=== PATIENT | male | born 1985 | race Native Hawaiian/Other Pacific Islander ===

== ENCOUNTER 2017-08-28 13:01 | Emergency (ER) | payer OTHER ==
[2017-08-28 14:00] LABS: Basophils % (A) 0 %; Eosinophils # (A) 0.1 k/uL (0-0.7); Eosinophils % (A) 1 %; HCT 46.1 % (39.0-53.0); HGB 16.3 gm/dL (13.0-17.5); Lymphocytes # (A) 1.1 k/uL (1.0-4.8); Lymphocytes % (A) 10 %; MCH 31.4 pg (25.0-35.0); MCHC 35.4 g/dL (31.0-37.0); MCV 88.7 fL (80.0-100.0); Mean Platelet Volume 7.8; Monocytes # (A) 0.5 k/uL (0-1.0); Monocytes % (A) 5 %; Neutrophils # (A) 9.2 k/uL (1.3-7.7); Neutrophils % (A) 84 %; Platelet Count 209 k/uL (150-450); RDW 12.6 % (11.5-15.5)
[2017-08-28 14:09] LABS: ALT 27 U/L (21-72); AST 16 U/L (17-59); Albumin 4.9 g/dL (3.5-5.0); Alkaline Phosphatase 80 U/L (38-126); Amylase 94 U/L (30-110); Anion Gap 12 mmol/L; Blood Urea Nitrogen 9 mg/dL (9-20); Calcium 10.2 mg/dL (8.4-10.2); Carbon Dioxide 27 mmol/L (22-30); Chloride 102 mmol/L (98-107); Glucose 101 mg/dL (74-99); Lipase 102 U/L (23-300); Potassium 4.3 mmol/L (3.5-5.1); Sodium 141 mmol/L (137-145); Total Bilirubin 0.4 mg/dL (0.2-1.3); Total Protein 7.9 g/dL (6.3-8.2)
[2017-08-28] MEDS ORDERED: ONDANSETRON 4 MG/2 ML VIAL IVP STA (14:27)
[2017-08-28] MEDS ORDERED: SODIUM CHLORIDE 0.9% 1,000 ML IV ONE ×2 (14:27→15:25)
[2017-08-28] MEDS ORDERED: RX INFO: IV CONTRAST WAS GIVEN 1 EACH MISC MISCELLANE PRN (14:27)
[2017-08-28] MEDS ORDERED: diphenhydrAMINE 50 MG/ML 1 ML VIAL IVP STA (14:30)
[2017-08-28] MEDS ORDERED: KETOROLAC 30 MG/ML 1 ML VIAL IVP STA (14:35)
--- NOTE | 2017-08-28 14:35 | ED ---
Nausea/Vomiting/Diarrhea HPI - General Chief complaint: Nausea/Vomiting/Diarrhea Stated complaint: withdrawals Time Seen by Provider: 08/28/17 14:26 Source: patient, RN notes reviewed Mode of arrival: ambulatory Limitations: no limitations - History of Present Illness Initial comments: 32-year-old male presents emergency Department chief complaint nausea vomiting diarrhea. Patient states symptoms started one week ago. Patient is to discharge from [facility]. Patient states he cannot tolerate symptoms at this time. Patient states he cannot keep any fluids down is concerned about dehydration. Patient states he sometimes gets abdominal pain but primarily nausea and vomiting. Patient does admit to a fever. Denies headache or dizziness. Denies any chest pain shortness breath. Patient states she is on methadone for a year and a half. Patient states she had no prior abdominal surgeries. - Related Data Previous Rx's Medication Instructions Recorded Ondansetron Odt [Zofran Odt] 4 mg PO Q8HR PRN #15 tab 08/28/17 Allergies Allergy/AdvReac Type Severity Reaction Status Date / Time No Known Allergies Allergy Verified 08/28/17 14:45 Review of Systems ROS Statement: Those systems with pertinent positive or pertinent negative responses have been documented in the HPI. ROS Other: All systems not noted in ROS Statement are negative. Past Medical History Past Medical History: No Reported History History of Any Multi-Drug Resistant Organisms: MRSA Date of last positivie culture/infection: 2010 MDRO Source:: left buttocks Past Surgical History: Adenoidectomy, Tonsillectomy Past Psychological History: Anxiety, Depression Smoking Status: Former smoker Past Alcohol Use History: None Reported Past Drug Use History: Heroin, Marijuana General Exam Limitations: no limitations General appearance: alert, in no apparent distress Head exam: Present: atraumatic, normocephalic, normal inspection Respiratory exam: Present: normal lung sounds bilaterally. Absent: respiratory distress, wheezes, rales, rhonchi, stridor Cardiovascular Exam: Present: regular rate, normal rhythm, normal heart sounds. Absent: systolic murmur, diastolic murmur, rubs, gallop, clicks GI/Abdominal exam: Present: soft, tenderness (Mild diffuse), normal bowel sounds. Absent: distended, guarding, rebound, rigid Skin exam: Present: warm, dry, intact, normal color. Absent: rash Course Vital Signs 03/25/18 13:23 Temperature 100.1 F H Pulse Rate 59 L Respiratory 20 Rate Blood Pressure 179/119 O2 Sat by Pulse 99 Oximetry Medical Decision Making - Medical Decision Making 32-year-old male presented from for drug withdrawal. Patient did have a fever noted no expressed. There is no evidence of acute fracture on x-ray and CT of abdomen. Patient feels better after antiemetics. Patient's drug screen positive for methadone and OxyContin marijuana. Patient stated that he was given oxycodone and methadone by other people. - Lab Data Result diagrams: 08/28/17 13:46 08/28/17 13:46 Lab Results 08/28/17 08/28/17 08/28/17 Range/Units 13:46 13:46 13:46 WBC 11.0 H (3.8-10.6) k/uL RBC 5.20 (4.30-5.90) m/uL Hgb 16.3 (13.0-17.5) gm/dL Hct 46.1 (39.0-53.0) % MCV 88.7 (80.0-100.0) fL MCH 31.4 (25.0-35.0) pg MCHC 35.4 (31.0-37.0) g/dL RDW 12.6 (11.5-15.5) % Plt Count 209 (150-450) k/uL Neutrophils % 84 % Lymphocytes % 10 % Monocytes % 5 % Eosinophils % 1 % Basophils % 0 % Neutrophils # 9.2 H (1.3-7.7) k/uL Lymphocytes # 1.1 (1.0-4.8) k/uL Monocytes # 0.5 (0-1.0) k/uL Eosinophils # 0.1 (0-0.7) k/uL Basophils # 0.0 (0-0.2) k/uL Sodium 141 (137-145) mmol/L Potassium 4.3 (3.5-5.1) mmol/L Chloride 102 (98-107) mmol/L Carbon Dioxide 27 (22-30) mmol/L Anion Gap 12 mmol/L BUN 9 (9-20) mg/dL Creatinine 0.60 L (0.66-1.25) mg/dL Est GFR (CKD-EPI)AfAm >90 (>60 ml/min/1.73 sqM) Est GFR (CKD-EPI)NonAf >90 (>60 ml/min/1.73 sqM) Glucose 101 H (74-99) mg/dL Plasma Lactic Acid Luis Daniel 1.3 (0.7-2.0) mmol/L Calcium 10.2 (8.4-10.2) mg/dL Total Bilirubin 0.4 (0.2-1.3) mg/dL AST 16 L (17-59) U/L ALT 27 (21-72) U/L Alkaline Phosphatase 80 (38-126) U/L Total Protein 7.9 (6.3-8.2) g/dL Albumin 4.9 (3.5-5.0) g/dL Amylase 94 (30-110) U/L Lipase 102 (23-300) U/L Urine Color Urine Appearance (Clear) Urine pH (5.0-8.0) Ur Specific [place] (1.001-1.035) Urine Protein (Negative) Urine Glucose (UA) (Negative) Urine Ketones (Negative) Urine Blood (Negative) Urine Nitrite (Negative) Urine Bilirubin (Negative) Urine Urobilinogen (<2.0) mg/dL Ur Leukocyte Esterase (Negative) Urine Opiates Screen (NotDetected) Ur Oxycodone Screen (NotDetected) Urine Methadone Screen (NotDetected) Ur Propoxyphene Screen (NotDetected) Ur Barbiturates Screen (NotDetected) U Tricyclic Antidepress (NotDetected) Ur Phencyclidine Scrn (NotDetected) Ur Amphetamines Screen (NotDetected) U Methamphetamines Scrn (NotDetected) U Benzodiazepines Scrn (NotDetected) Urine Cocaine Screen (NotDetected) U Marijuana (THC) Screen (NotDetected) 08/28/17 Range/Units 15:53 WBC (3.8-10.6) k/uL RBC (4.30-5.90) m/uL Hgb (13.0-17.5) gm/dL Hct (39.0-53.0) % MCV (80.0-100.0) fL MCH (25.0-35.0) pg MCHC (31.0-37.0) g/dL RDW (11.5-15.5) % Plt Count (150-450) k/uL Neutrophils % % Lymphocytes % % Monocytes % % Eosinophils % % Basophils % % Neutrophils # (1.3-7.7) k/uL Lymphocytes # (1.0-4.8) k/uL Monocytes # (0-1.0) k/uL Eosinophils # (0-0.7) k/uL Basophils # (0-0.2) k/uL Sodium (137-145) mmol/L Potassium (3.5-5.1) mmol/L Chloride (98-107) mmol/L Carbon Dioxide (22-30) mmol/L Anion Gap mmol/L BUN (9-20) mg/dL Creatinine (0.66-1.25) mg/dL Est GFR (CKD-EPI)AfAm (>60 ml/min/1.73 sqM) Est GFR (CKD-EPI)NonAf (>60 ml/min/1.73 sqM) Glucose (74-99) mg/dL Plasma Lactic Acid Luis Daniel (0.7-2.0) mmol/L Calcium (8.4-10.2) mg/dL Total Bilirubin (0.2-1.3) mg/dL AST (17-59) U/L ALT (21-72) U/L Alkaline Phosphatase (38-126) U/L Total Protein (6.3-8.2) g/dL Albumin (3.5-5.0) g/dL Amylase (30-110) U/L Lipase (23-300) U/L Urine Color Light Yellow Urine Appearance Clear (Clear) Urine pH 8.0 (5.0-8.0) Ur Specific [place] 1.031 (1.001-1.035) Urine Protein Negative (Negative) Urine Glucose (UA) Negative (Negative) Urine Ketones Negative (Negative) Urine Blood Negative (Negative) Urine Nitrite Negative (Negative) Urine Bilirubin Negative (Negative) Urine Urobilinogen <2.0 (<2.0) mg/dL Ur Leukocyte Esterase Negative (Negative) Urine Opiates Screen Not Detected (NotDetected) Ur Oxycodone Screen Detected H (NotDetected) Urine Methadone Screen Detected H (NotDetected) Ur Propoxyphene Screen Not Detected (NotDetected) Ur Barbiturates Screen Not Detected (NotDetected) U Tricyclic Antidepress Not Detected (NotDetected) Ur Phencyclidine Scrn Not Detected (NotDetected) Ur Amphetamines Screen Not Detected (NotDetected) U Methamphetamines Scrn Not Detected (NotDetected) U Benzodiazepines Scrn Not Detected (NotDetected) Urine Cocaine Screen Not Detected (NotDetected) U Marijuana (THC) Screen Detected H (NotDetected) Disposition Clinical Impression: Drug withdrawal, Opiate use Disposition: HOME SELF-CARE Condition: Stable Instructions: Opioid Withdrawal (ED) Additional Instructions: Please return to the Emergency Department if symptoms worsen or any other concerns. Prescriptions: Ondansetron Odt [Zofran Odt] 4 mg PO Q8HR PRN #15 tab PRN Reason: Nausea Referrals: Genaro Melton MD [Primary Care Provider] - 1-2 days Time of Disposition: 16:34
--- NOTE | 2017-08-28 16:04 | CT ---
EXAMINATION TYPE: CT abdomen pelvis w con DATE OF EXAM: 08/28/2017 COMPARISON: NONE HISTORY: Abdominal pain and vomiting CT DLP: 1644 mGycm Automated exposure control for dose reduction was used. TECHNIQUE: Helical acquisition of images was performed from the lung bases through the pelvis. CONTRAST: Performed without Oral Contrast and with IV Contrast, patient injected with 100 mL of Isovu e 300. FINDINGS: LUNG BASES: No significant abnormality is appreciated. LIVER/GB: No significant abnormality is appreciated. PANCREAS: No significant abnormality is seen. SPLEEN: No significant abnormality is seen. ADRENALS: No significant abnormality is seen. KIDNEYS: No significant abnormality is seen. FREE AIR: No free air is visualized. RETROPERITONEAL ADENOPATHY: None visualized REPRODUCTIVE ORGANS: No significant abnormality is seen URINARY BLADDER: No significant abnormality is seen. PELVIC ADENOPATHY: None visualized. OSSEOUS STRUCTURES: No significant abnormality is seen. BOWEL: No significant abnormality is seen. The appendix is well-seen and has normal appearance, it e xtends over much of the anterior margin of the right psoas muscle. OTHER: Vasculature is unremarkable. IMPRESSION: NO ACUTE PROCESS, CT WITH CONTRAST.
[2017-08-28 16:06] LABS: Appearance,Urine Clear (Clear); Bilirubin,Urine Negative (Negative); Blood,Urine Negative (Negative); Color,Urine Light Yellow; Glucose,Urine (UA) Negative (Negative); Ketones,Urine Negative (Negative); Leukocyte Esterase,Urine Negative (Negative); Nitrite,Urine Negative (Negative); Protein,Urine Negative (Negative); Specific Gravity,Urine 1.031 (1.001-1.035); Urobilinogen,Urine <2.0 mg/dL (<2.0)
[2017-08-28 16:25] LABS: Amphetamine Screen,Urine Not Detected (NotDetected); Barbiturate Screen,Urine Not Detected (NotDetected); Benzodiazepines Screen,Urine Not Detected (NotDetected); Cocaine Screen,Urine Not Detected (NotDetected); Methadone Screen, Urine Detected (NotDetected); Opiate Screen,Urine Not Detected (NotDetected); Oxycodone Screen, Urine Detected (NotDetected); Phencyclidine Screen,Urine Not Detected (NotDetected); Tricyclic Antidepressant,Urine Not Detected (NotDetected); Urn Cannabinoid Scrn Detected (NotDetected)
[2017-08-28 16:33] VITALS: BP 163/82; PULSE 64; RESP 16; TEMP 98.9
== END 2017-08-28 16:42 | disposition home or self-care (01) ==
LOC: EC 13:01
DX: F11.23 Opioid dependence with withdrawal (principal); R19.7 Diarrhea, unspecified; R10.9 Unspecified abdominal pain; R50.9 Fever, unspecified; Z86.14 Personal history of Methicillin resistant Staphylococcus aureus infection; Z87.891 Personal history of nicotine dependence
CPT/HCPCS: 36415; 80053; 82150; 83605; 83690; 85025; 81003; 87040; 80306; 74177; 99284; 96374; 96375 ×2; 96361 ×2; J1200; J2405; J1885; Q9967

== ENCOUNTER 2018-08-08 10:46 | Emergency (ER) | payer OTHER ==
[2018-08-08 11:18] VITALS: BP 138/74; PULSE 83; RESP 16; TEMP 98.3
[2018-08-08] MEDS ORDERED: LIDOCAINE 1% INJ 10MG/ML (20 ML MDV) SQ STA (11:42)
--- NOTE | 2018-08-08 11:43 | ED ---
General Adult HPI - General Chief complaint: Skin/Abscess/Foreign Body Stated complaint: Abcess Time Seen by Provider: 08/08/18 11:29 Source: patient, RN notes reviewed Mode of arrival: ambulatory Limitations: no limitations - History of Present Illness Initial comments: Patient 33-year-old male significant past medical history for IV drug abuse, presenting to the emergency room today with an abscess to the left forearm. Patient does admit that he noticed a bump setting 2 days ago. He states he was able to some drainage at home. He states has become more tender and painful. He states he wanted to try to get antibiotics before it got worse. Patient does admit that he had to be hospitalized in the past for something like this. Patient denies any other complaints or symptoms. - Related Data Previous Rx's Medication Instructions Recorded Sulfamethox-Tmp 800-160Mg [Bactrim 1 tab PO Q12HR #28 tab 08/08/18 DS 800-160 mg] Allergies Allergy/AdvReac Type Severity Reaction Status Date / Time No Known Allergies Allergy Verified 08/08/18 12:01 Review of Systems ROS Statement: Those systems with pertinent positive or pertinent negative responses have been documented in the HPI. ROS Other: All systems not noted in ROS Statement are negative. Past Medical History Past Medical History: No Reported History History of Any Multi-Drug Resistant Organisms: MRSA Date of last positivie culture/infection: 2012 MDRO Source:: left axilla Past Surgical History: Adenoidectomy, Tonsillectomy Past Psychological History: Anxiety, Depression Smoking Status: Current every day smoker Past Alcohol Use History: None Reported Past Drug Use History: Heroin, Marijuana General Exam - General Exam Comments Initial Comments: General: The patient is awake and alert, in no distress, and does not appear acutely ill. Eye: There is normal conjunctiva bilaterally. No signs of icterus. Ears, nose, mouth and throat: There are moist mucous membranes and no oral lesions. Neck: The neck is supple, there is no tenderness or JVD. Musculoskeletal: Normal ROM, no tenderness. Strength 5/5. Sensation intact. Pulses equal bilaterally 2+. Neurological: A&O x 3. CN II-XII intact, There are no obvious motor or sensory deficits. Coordination appears grossly intact. Speech is normal. Skin: Abscess to the left AC joint area. This firm on palpation. Measures approximately 2-3 cm across by 1 cm. No lymphangitic streaking. Tract nugent to the left and right AC areas. Psychiatric: Cooperative, appropriate mood & affect, normal judgment. Limitations: no limitations Course Vital Signs 08/08/18 11:14 Temperature 98.3 F Pulse Rate 83 Respiratory 16 Rate Blood Pressure 138/74 O2 Sat by Pulse 99 Oximetry Procedures - Procedures Initial comment: She does have abscess to the left AC joint. Procedure: Incision and drainage The skin overlying the abscess was prepped with Betadine, and anesthetized with 1% lidocaine without epinephrine. A #11 scalpel was then used to incise the abscess. Moderate purulent material was then extracted from the lesion. Wound culture obtained. Gauze dressing placed on top, The patient tolerated the procedure well. Medical Decision Making - Medical Decision Making Patient abscess drained here in the emergency room. Moderate amount of drainage was removed. Wound culture obtained. Patient will be started on antibiotics. He is advised close follow-up and return to emergency room if any symptoms increase worsen. Disposition Clinical Impression: Abscess Disposition: HOME SELF-CARE Condition: Good Instructions (If sedation given, give patient instructions): Abscess (ED) Additional Instructions: Please use medication as discussed. Please follow-up with family doctor in the next 2 days of symptoms have not improved. Please return to emergency room if the symptoms increase or worsen or for any other concerns. Prescriptions: Sulfamethox-Tmp 800-160Mg [Bactrim DS 800-160 mg] 1 tab PO Q12HR #28 tab Is patient prescribed a controlled substance at d/c from ED?: No Referrals: Genaro Melton MD [Primary Care Provider] - 1-2 days Time of Disposition: 12:02
== END 2018-08-08 12:13 | disposition home or self-care (01) ==
LOC: EC 10:46
DX: L02.414 Cutaneous abscess of left upper limb (principal); F17.200 Nicotine dependence, unspecified, uncomplicated; Z86.14 Personal history of Methicillin resistant Staphylococcus aureus infection
CPT/HCPCS: 87070; 87205; 99283; 10060; J2001

== ENCOUNTER 2018-08-11 01:10 | Inpatient (IN) | payer OTHER ==
[2018-08-11] MEDS ORDERED: KETOROLAC 30 MG/ML 1 ML VIAL IVP STA (01:35)
[2018-08-11] MEDS ORDERED: ACETAMINOPHEN TAB 500 MG TAB PO STA (01:35)
[2018-08-11] MEDS ORDERED: VANCOMYCIN IV PER PHARMACY 1 EACH MISC MISCELLANE PRN (01:35)
[2018-08-11] MEDS ORDERED: RX INFO: IV CONTRAST WAS GIVEN 1 EACH MISC MISCELLANE PRN (01:45)
[2018-08-11] MEDS ORDERED: PIPERACILLIN-TAZOBACTAM 3.375 GM in SODIUM CHLORIDE 0.9% 100 ML IVPB STA (01:45)
[2018-08-11] MEDS ORDERED: VANCOMYCIN 1,750 MG in SODIUM CHLORIDE 0.9% 500 ML 500 ML IVPB ONE (02:00)
--- NOTE | 2018-08-11 02:15 | ED ---
Skin/Abscess/FB HPI - General Chief complaint: Skin/Abscess/Foreign Body Stated complaint: abscess Time Seen by Provider: 08/11/18 01:30 Source: patient Mode of arrival: ambulatory Limitations: no limitations - History of Present Illness Initial comments: 33-year-old male patient presents to the emergency department today for evaluation of worsening abscess to the left antecubital region. Patient was seen and evaluated for this on 08/08/2018 and underwent incision and drainage. He was started on Bactrim. States he has been taking this medication as directed since receiving the prescription. States that over the last 12 hours the area has exhibited worsening swelling, redness, and pain. States that he has had some sweats but denies any known fever or chills. Patient does admit to a history of IV drug use, states that he last used a week or 2 ago. States he is currently taking Suboxone. Patient denies any recent rash, shortness breath, chest pain, abdominal pain, nausea, vomiting, diarrhea, constipation, back pain, numbness, tingling, dizziness, weakness, hematuria, dysuria, urinary urgency, urinary frequency, headache, visual changes, or any other complaints. - Related Data Previous Rx's Medication Instructions Recorded Sulfamethox-Tmp 800-160Mg [Bactrim 1 tab PO Q12HR #28 tab 08/08/18 DS 800-160 mg] Allergies Allergy/AdvReac Type Severity Reaction Status Date / Time No Known Allergies Allergy Verified 08/11/18 01:19 Review of Systems ROS Statement: Those systems with pertinent positive or pertinent negative responses have been documented in the HPI. ROS Other: All systems not noted in ROS Statement are negative. Past Medical History Past Medical History: No Reported History History of Any Multi-Drug Resistant Organisms: MRSA Date of last positivie culture/infection: 08/08/18 MDRO Source:: ARM Past Surgical History: Adenoidectomy, Tonsillectomy Past Psychological History: Anxiety, Depression Smoking Status: Current some day smoker Past Alcohol Use History: None Reported Past Drug Use History: Heroin, Marijuana General Exam Limitations: no limitations General appearance: alert, in no apparent distress, other (Physical well- developed, well-nourished adult male patient in no acute distress. Vital signs upon presentation are temperature 99.3F, pulse 120, respirations 18, blood pressure 136/77, pulse ox 95% on room air.) Respiratory exam: Present: normal lung sounds bilaterally. Absent: respiratory distress, wheezes, rales, rhonchi, stridor Cardiovascular Exam: Present: regular rate, normal rhythm, normal heart sounds. Absent: systolic murmur, diastolic murmur, rubs, gallop, clicks Extremities exam: Present: full ROM, tenderness (Tenderness over the left antecubital region), normal capillary refill, other (Patient has swelling, erythema, and induration noted over the left antecubital region extending up to the mid upper arm and mid forearm. Skin to the hand is pink, warm, dry. Cap refills less than 3 seconds. Radial pulses 2+ and equal bilaterally). Absent: normal inspection, pedal edema, joint swelling, calf tenderness Neurological exam: Present: alert, oriented X3, CN II-XII intact Psychiatric exam: Present: normal affect, normal mood Skin exam: Present: warm, dry, intact, normal color. Absent: rash Course Vital Signs 08/11/18 08/11/18 01:13 02:29 Temperature 99.3 F Pulse Rate 120 H 93 Respiratory 18 16 Rate Blood Pressure 136/77 141/76 O2 Sat by Pulse 95 100 Oximetry Procedures - Incision & Drainage Consent Obtained: verbal consent Indication: Abscess Site: upper extremity (Left antecubital region) Size (cm): 3 Anesthetic Used: lidocaine 1% Amount (mLs): 5 I&D Cleaning Method: Betadine Needle Aspiration Performed?: Yes Irrigation Performed?: No I&D Drainage Obtained: Pus, Blood Culture Obtained?: No Patient Tolerated Procedure: well, no complications Medical Decision Making - Medical Decision Making Pleasant 33-year-old male patient with known history of IV drug abuse presents to the emergency department today for evaluation of worsening infection to the left arm. Patient was seen and evaluated for an abscess to the left antecubital fossa on 08/08/2018. Patient reported that over the last 12 hours the area has had increasing redness, swelling, and pain. Labs reviewed and did reveal elevated white blood cell count 11.7, hemoglobin is decreased 12.0. Sodium is 135. Blood sugars 149. Total bilirubin 2.1, AST 188, ALT 673. CT of the left arm with contrast was obtained and did reveal a 3.2 cm intramuscular abscess in the left antecubital region. For further evaluation of the liver we did add an acute hepatitis panel as well as PT/INR, PTT. For management of the abscess I did cleanse the area with Betadine and attempt needle aspiration, was unable to aspirate any fluid however I was able to express a large amount of purulent fluid from the area with pressure. Patient did report improvement of pain symptoms once the area was drained. Patient was started on vancomycin was given a dose of Zosyn pending CT results. There does not appear to be any evidence of necrotizing fasciitis we will discontinue the Zosyn and continue vancomycin. Patient did have a positive MRSA culture from the abscess on 08/08/2018. We will admit to the hospital for continued IV antibiotics and IV fluids. Patient was informed of all results and plan, he is agreeable. - Lab Data Result diagrams: 08/11/18 01:50 08/11/18 01:50 Lab Results 08/11/18 08/11/18 08/11/18 Range/Units 01:50 01:50 01:50 WBC 11.7 H (3.8-10.6) k/uL RBC 4.00 L (4.30-5.90) m/uL Hgb 12.0 L (13.0-17.5) gm/dL Hct 37.1 L (39.0-53.0) % MCV 92.7 (80.0-100.0) fL MCH 30.1 (25.0-35.0) pg MCHC 32.5 (31.0-37.0) g/dL RDW 14.3 (11.5-15.5) % Plt Count 305 (150-450) k/uL Neutrophils % 79 % Lymphocytes % 12 % Monocytes % 7 % Eosinophils % 1 % Basophils % 0 % Neutrophils # 9.2 H (1.3-7.7) k/uL Lymphocytes # 1.4 (1.0-4.8) k/uL Monocytes # 0.9 (0-1.0) k/uL Eosinophils # 0.1 (0-0.7) k/uL Basophils # 0.1 (0-0.2) k/uL Sodium 135 L (137-145) mmol/L Potassium 4.2 (3.5-5.1) mmol/L Chloride 104 (98-107) mmol/L Carbon Dioxide 23 (22-30) mmol/L Anion Gap 8 mmol/L BUN 16 (9-20) mg/dL Creatinine 0.67 (0.66-1.25) mg/dL Est GFR (CKD-EPI)AfAm >90 (>60 ml/min/1.73 sqM) Est GFR (CKD-EPI)NonAf >90 (>60 ml/min/1.73 sqM) Glucose 149 H (74-99) mg/dL Plasma Lactic Acid Luis Daniel 1.5 (0.7-2.0) mmol/L Calcium 8.6 (8.4-10.2) mg/dL Total Bilirubin 2.1 H (0.2-1.3) mg/dL AST 188 H (17-59) U/L ALT 673 H (21-72) U/L Alkaline Phosphatase 113 (38-126) U/L Total Protein 6.4 (6.3-8.2) g/dL Albumin 3.6 (3.5-5.0) g/dL - Radiology Data Radiology results: report reviewed, image reviewed CT of the left arm with contrast was obtained. Report is reviewed in its entirety. Impression by Dr. Bruce shows intramuscular antecubital fossa 3.2 cm fluid collection likely represents an abscess. There is diffuse soft tissue swelling likely representing cellulitis. Disposition Clinical Impression: Abscess of left arm, Cellulitis of left arm Disposition: ADMITTED IP TO THIS [facility] Condition: Serious Referrals: Genaro Melton MD [Primary Care Provider] - 1-2 days Decision to Admit Reason: Admit from [facility] Decision Date: 08/11/18 Decision Time: 04:09
[2018-08-11] MEDS: SODIUM CHLORIDE 0.9% 500 ML 500 ML IV SCH ×3 (02:24→05:33)
[2018-08-11 02:37] LABS: ALT 673 U/L (21-72); AST 188 U/L (17-59); Albumin 3.6 g/dL (3.5-5.0); Alkaline Phosphatase 113 U/L (38-126); Anion Gap 8 mmol/L; Blood Urea Nitrogen 16 mg/dL (9-20); Calcium 8.6 mg/dL (8.4-10.2); Carbon Dioxide 23 mmol/L (22-30); Chloride 104 mmol/L (98-107); Glucose 149 mg/dL (74-99); Potassium 4.2 mmol/L (3.5-5.1); Sodium 135 mmol/L (137-145); Total Bilirubin 2.1 mg/dL (0.2-1.3); Total Protein 6.4 g/dL (6.3-8.2)
[2018-08-11 02:45] LABS: Basophils # (A) 0.1 k/uL (0-0.2); Basophils % (A) 0 %; Eosinophils # (A) 0.1 k/uL (0-0.7); Eosinophils % (A) 1 %; HCT 37.1 % (39.0-53.0); Lymphocytes # (A) 1.4 k/uL (1.0-4.8); Lymphocytes % (A) 12 %; MCH 30.1 pg (25.0-35.0); MCHC 32.5 g/dL (31.0-37.0); MCV 92.7 fL (80.0-100.0); Mean Platelet Volume 7.9; Monocytes # (A) 0.9 k/uL (0-1.0); Monocytes % (A) 7 %; Neutrophils # (A) 9.2 k/uL (1.3-7.7); Neutrophils % (A) 79 %; Platelet Count 305 k/uL (150-450); RDW 14.3 % (11.5-15.5); WBC 11.7 k/uL (3.8-10.6)
--- NOTE | 2018-08-11 03:24 | CT ---
EXAM: CT Left Upper Extremity With Intravenous Contrast CLINICAL HISTORY: ITS.REASON CT Reason: Pain TECHNIQUE: Axial computed tomography images of the left upper extremity with intravenous contrast. CTDI is 36 mGy and DLP is 1700 mGy-cm. This CT exam was performed using one or more of the following dose reduction techniques: automated exposure control, adjustment of the mA and/or kV according to patient size, and/or use of iterative reconstruction technique. COMPARISON: No relevant prior studies available. FINDINGS: Bones/joints: Unremarkable. No acute fracture. No dislocation. Soft tissues: Diffuse soft tissue swelling and skin thickening. There is a 3.2 x 2.2 cm intramuscular fluid collection in the antecubital fossa. IMPRESSION: Intramuscular antecubital fossa 3.2 cm fluid collection likely represents an abscess. There is diffuse soft tissue swelling likely representing cellulitis.
[2018-08-11] MEDS ORDERED: IBUPROFEN 400 MG TAB PO PRN (04:03)
[2018-08-11] MEDS ORDERED: KETOROLAC 30 MG/ML 1 ML VIAL IVP PRN (04:03)
[2018-08-11] MEDS ORDERED: NALOXONE 0.4 MG/ML 1 ML VIAL IV PRN (04:03)
[2018-08-11] MEDS ORDERED: LIDOCAINE 1% INJ 10MG/ML (20 ML MDV) SQ ONE (04:18)
[2018-08-11 05:00] LABS: Hepatitis A AB IgM Index 0.02; Hepatitis A Antibody IgM NEGATIVE
[2018-08-11 05:24] VITALS: BMI 29.0
[2018-08-11] MEDS: SODIUM CHLORIDE 0.9% 1,000 ML IV SCH ×2 (05:56→18:13)
[2018-08-11 07:55] LABS: Partial Thromboplastin Time 26.9 sec (22.0-30.0); Prothrombin Time 10.6 sec (9.0-12.0)
[2018-08-11] MEDS: VANCOMYCIN 1,500 MG in SODIUM CHLORIDE 0.9% 250 ML IVPB SCH ×2 (11:11→19:50)
[2018-08-11] MEDS ORDERED: ONDANSETRON 4 MG/2 ML VIAL IVP PRN (13:30)
--- NOTE | 2018-08-11 13:57 | P.HPIM ---
History of Present Illness H&P Date: 08/11/18 Chief Complaint: Left forearm swelling The patient is a 33-year-old male with a past medical history of IV drug abuse, previous MRSA abscess of the axilla and gluteal area who presents to the ER via private vehicle with chief complaint of left forearm crease pain and swelling. Apparently the patient symptoms started as a bump in that area over a week ago and gradually became more swollen and erythematous and more painful. The patient presented to the ER and was seen 08/08/18 and had a reported I&D in the ER and was discharged home on Bactrim, with no improvement of his symptoms.the patient actually reports that it's gotten even more swollen and red and tender. The patient denies any subjective fevers chills or night sweats and reports to intermittent IV drug use. States he is currently taking Suboxone. Patient denies any shortness breath, chest pain, abdominal pain, nausea, vomiting, diarrhea, constipation, back pain, numbness, tingling, dizziness, weakness, hematuria, dysuria, urinary urgency, urinary frequency, headache, visual changes, or any other complaints. Review of records indicates that the patient ID cultures grew MRSA and beta hemolytic strep. In the ER the patient had a comprehensive workup and was noted to have a mild leukocytosis of 11.7 and he was started on empiric IV antibiotics with vancomycin and Zosyn after left upper extremity CT confirmed a 3.2 cm abscess in that and a cubicle fossa with surrounding cellulitis. The patient is recommended for admission to be seen by ID and orthopedics and for IV antibiotics. Review of Systems Pertinent positives per HPI all other review of systems otherwise negative Past Medical History Past Medical History: No Reported History History of Any Multi-Drug Resistant Organisms: MRSA Date of last positivie culture/infection: 08/08/18 MDRO Source:: ARM Past Surgical History: Adenoidectomy, Tonsillectomy Past Psychological History: Anxiety, Depression Smoking Status: Current some day smoker Past Alcohol Use History: None Reported Past Drug Use History: Heroin, Marijuana - Past Family History Mother History Unknown: Yes Medications and Allergies Home Medications Medication Instructions Recorded Confirmed Type Sulfamethox-Tmp 800-160Mg [Bactrim 1 tab PO Q12HR #28 tab 08/08/18 08/11/18 Rx DS 800-160 mg] Allergies Allergy/AdvReac Type Severity Reaction Status Date / Time No Known Allergies Allergy Verified 08/11/18 08:02 Physical Exam Vitals: Vital Signs Temp Pulse Pulse Resp BP BP Pulse Ox 08/11/18 08:00 16 08/11/18 06:00 97.9 F 101 H 16 134/74 100 08/11/18 04:59 98.5 F 93 16 141/78 98 08/11/18 02:29 93 16 141/76 100 08/11/18 01:13 99.3 F 120 H 18 136/77 95 Intake and Output 08/10/18 08/11/18 08/11/18 22:59 06:59 14:59 Intake Total 850 Balance 850 Intake: Intake, IV Titration 850 Amount Piperacillin-Tazobactam 3 100 .375 gm In Sodium Chloride 0.9% 100 ml @ 25 mls/hr IVPB ONCE STA Rx# :[id number] Vancomycin 1,500 mg In 250 Sodium Chloride 0.9% 250 ml @ 125 mls/hr IVPB Q8H GEORGE Rx#:[id number] Vancomycin 1,750 mg In 500 Sodium Chloride 0.9% 500 ml 500 ml @ 166.67 mls/hr IVPB ONCE ONE Rx#: [id number] Other: Voiding Method Toilet Toilet Urinal Urinal Weight 102.784 kg Constitutional: No acute distress, conversant, pleasant Eyes: Anicteric sclerae, moist conjunctiva, no lid-lag, PERRLA ENMT: NC/AT,Oropharynx clear, no erythema, exudates Neck:Supple, FROM, no masses, or JVD, No carotid bruits; No thyromegaly Lungs: Clear to auscultation, Clear to percussion, Normal respiratory effort, no accessory muscle use Cardiovascular: Heart regular in rate and rhythm, No murmurs, gallops, or rubs no peripheral edema Abdominal: Soft Nontender, nom distended, no guarding, no rebound or rigidity, Normoactive bowel sounds No hepatomegaly, No splenomegaly, No palpable mass No abdominal wall hernia noted Skin: (Tenderness over the left antecubital region), normal capillary refill, other (Patient has swelling, erythema, and induration noted over the left antecubital region extending up to the mid upper arm and mid forearm. Purulent drainage noted Extremities:No digital cyanosis No clubbing, Pedal pulses intact and symmetrical Radial pulses intact and symmetrical Normal gait and station, No calf tenderness Psychiatric: Alert and oriented to person, place and time, Appropriate affect Intact judgement Neuro: Muscles Strength 5/5 in all 4 extremities, Sensation to light touch grossly present throughout, Cranial nerves II-XII grossly intact. No focal sensory deficits Results CBC & Chem 7: 08/11/18 01:50 08/11/18 01:50 Labs: Abnormal Lab Results - Last 24 Hours (Table) 08/11/18 08/11/18 Range/Units 01:50 01:50 WBC 11.7 H (3.8-10.6) k/uL RBC 4.00 L (4.30-5.90) m/uL Hgb 12.0 L (13.0-17.5) gm/dL Hct 37.1 L (39.0-53.0) % Neutrophils # 9.2 H (1.3-7.7) k/uL Sodium 135 L (137-145) mmol/L Glucose 149 H (74-99) mg/dL Total Bilirubin 2.1 H (0.2-1.3) mg/dL AST 188 H (17-59) U/L ALT 673 H (21-72) U/L Thrombosis Risk Factor Assmnt - Choose All That Apply Any of the Below Risk Factors Present?: No Other Risk Factors: No Other congenital or acquired thrombophilia - If yes, enter type in comment: No Thrombosis Risk Factor Assessment Level: Very Low Risk Assessment and Plan (1) Sepsis Current Visit: Yes Status: Acute Code(s): A41.9 - SEPSIS, UNSPECIFIED ORGANISM SNOMED Code(s): 15030184 (2) Abscess of left arm Current Visit: Yes Status: Acute Code(s): L02.414 - CUTANEOUS ABSCESS OF LEFT UPPER LIMB SNOMED Code(s): 716201928 (3) Cellulitis of left arm Current Visit: Yes Status: Acute Code(s): L03.114 - CELLULITIS OF LEFT UPPER LIMB SNOMED Code(s): 603707826 (4) History of intravenous drug abuse Current Visit: Yes Status: Acute Code(s): Z87.898 - PERSONAL HISTORY OF OTHER SPECIFIED CONDITIONS SNOMED Code(s): 05814311466395072 Plan: The patient is admitted with sepsis secondary to a left antecubital abscess with surrounding cellulitis although afebrile he does have a mild white count of 11.7. Orthopedics has been consulted for I&D and ID consulted for antibiotic guidance, we'll plan to continue empiric IV antibiotics with vancomycin and Zosyn. Blood and urine cultures have been ordered, continue with supportive management with Tylenol and ibuprofen and Zofran. The patient is placed on heparin for DVT prophylaxis. Continue to monitor his clinical course. CODE STATUS Full code Anticipated discharge 2-3 days
[2018-08-11] MEDS: PIPERACILLIN-TAZOBACTAM 3.375 GM in SODIUM CHLORIDE 0.9% 100 ML IVPB SCH ×2 (15:29→19:11)
[2018-08-11 15:49] LABS: Hepatitis B Core IgM Reactive (Non-Reactive)
[2018-08-11 15:58] LABS: Appearance,Urine Clear (Clear); Bilirubin,Urine Negative (Negative); Blood,Urine Negative (Negative); Color,Urine Yellow; Glucose,Urine (UA) Negative (Negative); Ketones,Urine Negative (Negative); Leukocyte Esterase,Urine Negative (Negative); Nitrite,Urine Negative (Negative); Protein,Urine Negative (Negative); Specific Gravity,Urine 1.012 (1.001-1.035)
--- NOTE | 2018-08-11 20:10 | P.CNOR ---
History of Present Illness - HPI Consult date: 08/11/18 History of present illness: This is a 33-year-old male admitted to [facility] with complaint of redness and swelling to the left elbow. He has history of IV drug abuse. He last used IV drugs in that arm 2 weeks ago. Within a few days of that usage he developed swelling and redness to the antecubital area. He states that the ER has tried to drain the area with a needle and syringe twice. He has had no formal incision and drainage. He reports no fever or chills at home. He is admitted for IV antibiotics. We're consulted for orthopedic evaluation. Past Medical History Past Medical History: No Reported History History of Any Multi-Drug Resistant Organisms: MRSA Year Discovered:: 08/08/18 MDRO Source:: ARM Past Surgical History: Adenoidectomy, Tonsillectomy Past Psychological History: Anxiety, Depression Smoking Status: Current some day smoker Past Alcohol Use History: None Reported Past Drug Use History: Heroin, Marijuana - Past Family History Mother History Unknown: Yes Medications and Allergies Home Medications Medication Instructions Recorded Confirmed Type Sulfamethox-Tmp 800-160Mg [Bactrim 1 tab PO Q12HR #28 tab 08/08/18 08/11/18 Rx DS 800-160 mg] Allergies Allergy/AdvReac Type Severity Reaction Status Date / Time No Known Allergies Allergy Verified 08/11/18 08:02 Physical Examination This is a 33-year-old male in no acute distress. He is alert and oriented 3. Exam of the left upper extremities reveals erythema and swelling to the antecubital fossa. The redness extends down into the mid forearm. There is a small pinpoint area of yellow drainage from the mid antecubital region. He has fairly good elbow motion. He has full wrist motion without difficulty or pain. Neurovascular status the upper extremity is intact. Results CT of the left forearm reveals a fluid collection about the antecubital fossa. Generalized cellulitis noted as well. No acute fractures identified. No foreign bodies. - Labs Labs: Abnormal Lab Results - Last 24 Hours (Table) 08/11/18 08/11/18 08/11/18 Range/Units 01:50 01:50 01:50 WBC 11.7 H (3.8-10.6) k/uL RBC 4.00 L (4.30-5.90) m/uL Hgb 12.0 L (13.0-17.5) gm/dL Hct 37.1 L (39.0-53.0) % Neutrophils # 9.2 H (1.3-7.7) k/uL Sodium 135 L (137-145) mmol/L Glucose 149 H (74-99) mg/dL Total Bilirubin 2.1 H (0.2-1.3) mg/dL AST 188 H (17-59) U/L ALT 673 H (21-72) U/L Hep B Core IgM Ab Reactive H (Non-Reactive) H & H 08/11/18 Range/Units 01:50 Hgb 12.0 L (13.0-17.5) gm/dL Hct 37.1 L (39.0-53.0) % Coagulation 08/11/18 Range/Units 07:18 INR 1.0 (<1.2) Result Diagrams: 08/11/18 01:50 08/11/18 01:50 Assessment and Plan (1) Abscess of left arm Current Visit: Yes Status: Acute Code(s): L02.414 - CUTANEOUS ABSCESS OF LEFT UPPER LIMB SNOMED Code(s): 144738531 (2) Cellulitis of left arm Current Visit: Yes Status: Acute Code(s): L03.114 - CELLULITIS OF LEFT UPPER LIMB SNOMED Code(s): 229748298 (3) History of intravenous drug abuse Current Visit: Yes Status: Acute Code(s): Z87.898 - PERSONAL HISTORY OF OTHER SPECIFIED CONDITIONS SNOMED Code(s): 87492370756371998 Plan: The clinical findings are discussed with the patient. I reviewed the case Dr. Cunningham. We will take the patient to OR tomorrow for irrigation and debridement of the left elbow abscess. Continue IV antibiotics per infectious disease.
[2018-08-11 21:03] LABS: HIV 1 AB Non-Reactive (Non-Reactive); HIV AB P24 Non-Reactive (Non-Reactive); HIV P24 AG Non-Reactive (Non-Reactive)
[2018-08-12] MEDS: VANCOMYCIN 1,500 MG in SODIUM CHLORIDE 0.9% 250 ML IVPB SCH ×2 (03:15→11:13)
[2018-08-12] MEDS: PIPERACILLIN-TAZOBACTAM 3.375 GM in SODIUM CHLORIDE 0.9% 100 ML IVPB SCH ×2 (03:15→10:18)
[2018-08-12] MEDS: SODIUM CHLORIDE 0.9% 1,000 ML IV SCH ×2 (06:08→17:15)
--- NOTE | 2018-08-12 10:46 | P.PN ---
Subjective Progress Note Date: 08/12/18 Principal diagnosis: Abscess Patient was seen and examined. No acute events overnight. Patient reports slight improvement in the appearance of his antecubital fossa. No fever or chills. No nausea or vomiting. Patient reports no pain. He is nothing by mouth for possible I&D this afternoon. Objective - Vital Signs Vital signs: Vital Signs Temp 97.5 F L 08/12/18 05:09 Pulse 70 08/12/18 05:09 Resp 18 08/12/18 08:00 BP 90/46 08/12/18 05:09 Pulse Ox 98 08/12/18 05:09 Intake & Output 08/11/18 08/12/18 08/12/18 18:59 06:59 18:59 Other: Voiding Method Toilet Toilet Urinal # Voids 3 1 1 - Exam General: [non toxic], [no distress], [appears at stated age] Derm: [warm], [dry] Head: [atraumatic], [normocephalic], [symmetric] Eyes: [EOMI], [no lid lag], [anicteric sclera] Mouth: [no lip lesion], [mucus membranes moist] Cardiovascular: [S1S2 reg], [no murmur], [positive radial pulse bilateral] Lungs: [CTA bilateral], [no rhonchi, no rales] , [no accessory muscle use] Abdominal: [soft], [ nontender to palpation], [no guarding], [no appreciable organomegaly] Ext: [no gross muscle atrophy], [left upper extremity, antecubital fossa with erythema and swelling, fluctuant mass, yellow drainage] Neuro: [no focal neuro deficits] Psych: [Alert], [oriented], [appropriate affect] - Labs CBC & Chem 7: 08/11/18 01:50 08/11/18 01:50 Labs: Abnormal Lab Results - Last 24 Hours (Table) 08/11/18 Range/Units 01:50 Hep B Core IgM Ab Reactive H (Non-Reactive) Microbiology - Last 24 Hours (Table) 08/11/18 01:50 Blood Culture - Preliminary Blood No Growth after 24 hours Assessment and Plan Assessment: Assessment and Plan 1. Abscess of the left upper extremity secondary to IVDA 2. Cellulitis of the left upper extremity 3. History of IVDA 4. Hepatitis B 1. Patient afebrile with mild leukocytosis of 11.7 with neutrophilia. Co nfirmed on CT. Seen by orthopedic surgery, plans for I&D this afternoon. Pain management with ibuprofen and Toradol. Zofran as needed for nausea or vomiting. Continue IV Zosyn and vancomycin. Will follow orthopedic, ID recommendations. Follow blood cultures. 2. Management as above. 3. No concerns for withdrawal at this time. Also social work recommendations. 4. Hep B core IgM positive, recent infection. Follow hepatitis panel. Patient admitted for abscess the left antecubital fossa. I&D planned by orthopedic surgery today. Continue IV antibiotics. Follow ID recommendations.
[2018-08-12] MEDS ORDERED: VANCOMYCIN TROUGH DUE 1 EACH MISC MISCELLANE ONE (11:00)
--- NOTE | 2018-08-12 11:31 | US ---
EXAMINATION TYPE: US abdomen limited DATE OF EXAM: 08/12/2018 COMPARISON: CT dated 08/28/2017 CLINICAL HISTORY: transaminitis abscess left arm, MRSA per patient history EXAM MEASUREMENTS: Liver Length: 18.8 cm Gallbladder Wall: 0.2 cm CBD: 0.5 cm Right Kidney: 11.8 x 8.4 x 4.7 cm Pancreas: Decreased echogenicity throughout. No peripancreatic fluid collections Liver: Prominent in size Gallbladder: Contracted; hyperechoic focus in fundal wall may be echogenic wall polyp = 0.2 x 0.2 x 0.1cm renal calcification is seen on CT brain Evidence for sonographic Marcelino's sign: no CBD: wnl Right Kidney: wnl IMPRESSION: Decreased echogenicity of the pancreatic parenchyma suggests pancreatitis. No peripancrea tic fluid collections. Possible subcentimeter gallbladder polyps. Annual surveillance is recommended for polyps of this size.
[2018-08-12 11:33] LABS: ALT 434 U/L (21-72); AST 150 U/L (17-59); Albumin 2.7 g/dL (3.5-5.0); Alkaline Phosphatase 81 U/L (38-126); Anion Gap 4 mmol/L; Blood Urea Nitrogen 9 mg/dL (9-20); Calcium 8.5 mg/dL (8.4-10.2); Carbon Dioxide 25 mmol/L (22-30); Chloride 110 mmol/L (98-107); Glucose 89 mg/dL (74-99); Potassium 4.6 mmol/L (3.5-5.1); Sodium 139 mmol/L (137-145); Total Bilirubin 1.4 mg/dL (0.2-1.3); Total Protein 5.2 g/dL (6.3-8.2)
[2018-08-12 11:37] LABS: Basophils % (A) 1 %; Eosinophils # (A) 0.1 k/uL (0-0.7); Eosinophils % (A) 3 %; HCT 34.1 % (39.0-53.0); HGB 10.8 gm/dL (13.0-17.5); Lymphocytes # (A) 1.3 k/uL (1.0-4.8); Lymphocytes % (A) 28 %; MCH 30.5 pg (25.0-35.0); MCHC 31.8 g/dL (31.0-37.0); MCV 95.9 fL (80.0-100.0); Monocytes # (A) 0.4 k/uL (0-1.0); Monocytes % (A) 9 %; Neutrophils # (A) 2.7 k/uL (1.3-7.7); Neutrophils % (A) 58 %; Platelet Count 244 k/uL (150-450); RBC 3.55 m/uL (4.30-5.90); RDW 14.5 % (11.5-15.5); WBC 4.7 k/uL (3.8-10.6)
[2018-08-12] MEDS ORDERED: LIDOCAINE 1% INJ 10MG/ML (20 ML MDV) ONE (14:09)
[2018-08-12] MEDS ORDERED: PROPOFOL 10 MG/ML 20 ML VIAL IV ONE (14:09)
[2018-08-12] MEDS ORDERED: fentaNYL (PF) 50 MCG/ML 2 ML AMP ONE (14:09)
[2018-08-12] MEDS ORDERED: IV FLUID CONTINUATION 800 ML IV ONE (14:13)
--- NOTE | 2018-08-12 14:59 | P.OP ---
Date of Procedure: 08/12/18 Procedure(s) Performed: PREOPERATIVE DIAGNOSES: 1. Left antecubital fossa deep muscular abscess 2. Superficial cellulitis left elbow flexor surface POSTOPERATIVE DIAGNOSES: 1. Left antecubital fossa deep muscular abscess 2. Superficial cellulitis left elbow flexor surface 3. Biceps/brachialis muscular necrosis, partial PROCEDURES PERFORMED: 1. Left antecubital fossa deep muscular abscess incision and drainage with excisional debridement of necrotic muscle, subcu tissue, and fascia 2. Packing of wound with half inch iodoform gauze, wound left open ANESTHESIA: Gen. ANIMAL PATHOLOGY TEACHER: None COMPLICATIONS: None ESTIMATED BLOOD LOSS: Less than 20 mL. DISPOSITION: To post-anesthesia care unit INDICATIONS: Yasmani is a 33-year-old male with a history of abscess involving the left antecubital fossa due to intravenous drug abuse. His current symptoms have been presenting for approximately 2 weeks. He presents to the operating room for incision, debridement, excision of necrotic material, and packing. Consent has been obtained after discussion of the risks of incision and drainage of this abscess as being inclusive of, but not limited to: Bleeding, further infection, scarring, discomfort, blood vessel and/or nerve damage, compartment syndrome, failure to relieve symptoms, persistence or recurrence and/or worsening of symptoms or problems, need for further surgery, blood clot, pulmonary embolism, , anesthesia risks, and other risks. PROCEDURE: After appropriate consent was obtained, the patient was taken to the operating room placed in the supine position. Anesthesia was initiated, and after confirmation of adequate anesthesia, the patient was carefully positioned. Care was taken to make sure that all pressure points were adequately padded. Prepping and draping were completed in the usual aseptic fashion using ChloraPrep. Timeout was called, confirming patient identity, side, and procedure. Incision approximately 4 inches in size was created along the abscess, which was located on antecubital fossa of the left elbow. Incision was carried down just through skin and into subcu tissues where was noted that there was gross pus. The gross pus was removed by extending the incision and gently spreading down to the abscess cavity. The abscess cavity was probed with manual palpation until all areas of the abscess cavity were interrogated. Cultures were taken. There did appear to be extension of the abscess cavity into the deep muscular fascia o f the biceps and a small portion of the brachialis muscles. Soft tissue tension visibly and palpably improved after drainage of the abscess. Low-pressure high- volume saline lavage was used delivering approximately 1 L of saline within the abscess cavity. During this time, small amount of Hibiclens solution was also applied to the wound surface, allowed to soak into the tissues for 1 minute, and then rinsed off using the lavage solution. Subsequently, hemostasis was obtained using electrocautery but there was no significant bleeding present. Wound was lightly packed with half-inch iodoform gauze and sterile dressing was then applied. Patient tolerated the procedure well and taken to recovery room in stable condition. Sponge counts were correct.
[2018-08-12] MEDS: VANCOMYCIN 1,750 MG in SODIUM CHLORIDE 0.9% 500 ML 500 ML IVPB SCH (19:48)
[2018-08-12] MEDS: CEFEPIME 2 GM in SODIUM CHLORIDE 0.9% 100 ML IVPB SCH (23:08)
--- NOTE | 2018-08-12 23:50 | CONS ---
CONSULTATION DATE OF SERVICE: 08/12/2018. REASON FOR CONSULTATION: Left antecubital fossa abscess. HISTORY OF PRESENT ILLNESS: The patient is a 33-year-old male with a past medical history significant for IV drug use and previous history of MRSA sepsis of the left area. The patient presented to the ER at [facility] yesterday morning with chief complaints of left antecubital fossa pain, swelling and redness. The patient last injected in the same area about 2 weeks ago. A week later, he noticed developing a small area of swelling that has progressively increased in size and became more painful. Pain described to be throbbing almost 10 out of 10. He presented to hospital. The patient did have some chills but denies any high-grade fever. Subsequently the patient was evaluated by the ER physician. The patient did have a CT of the left upper extremity, which showed a 3.7 mm abscess in the left antecubital fossa with some surrounding cellulitis. On presentation, the patient did have a low-grade fever of 99.3. The patient white count was mildly elevated at 11.7. The patient did have blood cultures drawn. The patient was started on vancomycin, Zosyn. The patient was taken to the OR today by Orthopedics, status post drainage of this abscess. Infectious Disease was consulted for further recommendations regarding antibiotic therapy. REVIEW OF SYSTEMS: Positive points have been mentioned in HPI. Rest of the systems has been negative. PAST MEDICAL HISTORY: MRSA abscess of the left leg. PAST SURGICAL HISTORY: Appendectomy, tonsillectomy, and drainage of an abscess. SOCIAL HISTORY: Current everyday smoker. Did admit to marijuana and heroin use. FAMILY HISTORY: No pertinent findings noticed. ALLERGIES: No known drug allergies. MEDICATION: Include the patient is currently on vancomycin 1750 every eight hours, Zofran, Narcan, Toradol, Motrin and Zosyn every eight hours. PHYSICAL EXAMINATION: Blood pressure 111/66 with a pulse of 75, temperature 98. He is 99% on room air. General description is a middle-aged male lying in bed in no distress. No tachypnea or accessory muscles of respiration use. HEENT: Shows pallor. No scleral icterus. Oral mucosa membranes are dry. No pharyngeal erythema or thrush. NECK: Trachea central. No thyromegaly. Lungs unlabored breathing. Clear to auscultation anteriorly. No wheeze or crackles. Heart S1, S2. Regular rate and rhythm. Abdomen soft, no tenderness. No guarding or rigidity. Extremities: No edema of the feet. Examination of the skin, no jo ann or mass palpable. Examination of the left upper extremity, the area of the abscess that has been drained is currently dressed up with minimal . No foul smelling. Neurologically the patient is awake, alert, oriented times three. Mood and affect normal. LABS: Hemoglobin is 10.8, white count 4.7, BUN of 9, creatinine 0.48. Blood culture has been negative so far. Wound culture is currently pending. DIAGNOSTIC IMPRESSION AND PLAN: Patient with left antecubital fossa abscess from injection drug use in this patient who is status post drainage of this abscess and clear history for MRSA infection could have been MRSA, however gram-negative infection not entirely excluded. PLAN: 1. Vancomycin pharmacy to dose target of 15 while watching kidney function closely. 2. Discontinue Zosyn and add cefepime 2 g q.12 to cover for the gram-negative. 3. We will follow up on clinical condition and culture to further adjust medication if needed. Thank you for this consultation. Will follow this patient along with you. MMODL / IJN: [id number] /
[2018-08-13] MEDS: VANCOMYCIN 1,750 MG in SODIUM CHLORIDE 0.9% 500 ML 500 ML IVPB SCH ×3 (03:44→19:41)
[2018-08-13] MEDS: SODIUM CHLORIDE 0.9% 1,000 ML IV SCH ×2 (05:34→19:41)
[2018-08-13] MEDS: CEFEPIME 2 GM in SODIUM CHLORIDE 0.9% 100 ML IVPB SCH ×2 (07:42→23:27)
[2018-08-13 09:18] LABS: Amylase 31 U/L (30-110); Lipase 17 U/L (23-300)
--- NOTE | 2018-08-13 13:01 | P.PN ---
Subjective Progress Note Date: 08/13/18 Principal diagnosis: Left antecubital abscess Patient is a exam. No acute events overnight. Patient reports visual improvement in his left upper extremity abscess. He denies any fever or chills. He denies any pain at this time. He has no complaints. Girlfriend and mother at bedside. Objective - Vital Signs Vital signs: Vital Signs Temp 98.3 F 08/13/18 04:59 Pulse 65 08/13/18 04:59 Resp 16 08/13/18 07:50 BP 91/49 08/13/18 04:59 Pulse Ox 97 08/13/18 04:59 Intake & Output 08/12/18 08/13/18 08/13/18 17:59 06:59 18:59 Intake Total Output Total Balance Intake: IV Output: Estimated Blood Loss Other: Voiding Method Toilet # Voids 1 - Exam General: [non toxic], [no distress], [appears at stated age] Derm: [warm], [dry] Head: [atraumatic], [normocephalic], [symmetric] Eyes: [EOMI], [no lid lag], [anicteric sclera] Mouth: [no lip lesion], [mucus membranes moist] Cardiovascular: [S1S2 reg], [no murmur], [positive radial pulse bilateral] Lungs: [CTA bilateral], [no rhonchi, no rales] , [no accessory muscle use] Abdominal: [soft], [ nontender to palpation], [no guarding], [no appreciable organomegaly] Ext: [no gross muscle atrophy], [left upper extremity, antecubital fossa with e rythema and swelling, wrapped dressing clean dry and intact] Neuro: [no focal neuro deficits] Psych: [Alert], [oriented], [appropriate affect] - Labs CBC & Chem 7: 08/12/18 10:30 08/12/18 10:30 Labs: Abnormal Lab Results - Last 24 Hours (Table) 08/11/18 08/12/18 08/13/18 Range/Units 01:50 10:30 08:41 RBC 3.55 L (4.30-5.90) m/uL Hgb 10.8 L (13.0-17.5) gm/dL Hct 34.1 L (39.0-53.0) % Lipase 17 L (23-300) U/L Hep Bs Antigen Reactive H (Non-Reactive) Microbiology - Last 24 Hours (Table) 08/12/18 14:52 Gram Stain - Preliminary Arm - Left Wound Culture - Preliminary 08/12/18 14:52 Gram Stain - Preliminary Arm - Left Wound Culture - Preliminary 08/11/18 01:50 Blood Culture - Preliminary Blood No Growth after 48 hours 08/12/18 14:52 Anaerobic Culture - Preliminary Arm - Left 08/12/18 14:52 Anaerobic Culture - Preliminary Arm - Left Assessment and Plan Assessment: Assessment and Plan 1. Abscess of the left upper extremity secondary to IVDA 2. Cellulitis of the left upper extremity 3. Transaminitis 4. Hepatitis B 5. History of IVDA 1. Patient afebrile with mild leukocytosis of 11.7 with neutrophilia on admission, resolved on day 2. Confirmed on CT. Seen by orthopedic surgery, status post I&D yesterday. Pain management with ibuprofen and Toradol. Zofran as needed for nausea or vomiting. Continue IV vancomycin. ID consulted, Zosyn discontinued for IV cefepime. Blood cultures prelim negative at 48 hours. Wound culture so far negative. Will follow orthopedic, ID recommendations. Follow blood cultures, wound cultures. 2. Management as above. 3. Total bilirubin 1.4, AST 150, ALTs 434. Likely secondary to active acute hepatitis B infection. Daily CMP. 4. Hep B core IgM positive, surface antigen positive. Acute infection. Daily CMP. Will need adequate outpatient follow-up. 5. No concerns for withdrawal at this time. Also social work recommendations. Patient admitted for abscess the left antecubital fossa. I&D planned by orthopedic surgery today. Continue IV antibiotics. Follow ID recommendations.
--- NOTE | 2018-08-13 13:18 | P.PN ---
Subjective Progress Note Date: 08/13/18 Principal diagnosis: Abscess left elbow. IV drug use. This is a 33-year-old male who is status post I&D of the left antecubital fossa for abscess secondary to IV drug use. He has no new complaints or concerns today. Vital signs are stable. He states his pain is minimal. Objective - Vital Signs Vital signs: Vital Signs Temp 98.0 F 08/13/18 12:52 Pulse 65 08/13/18 12:52 Resp 16 08/13/18 12:52 BP 128/77 08/13/18 12:52 Pulse Ox 100 08/13/18 12:52 Intake & Output 08/12/18 08/13/18 08/13/18 17:59 06:59 18:59 Intake Total Output Total Balance Intake: IV Output: Estimated Blood Loss Other: Voiding Method Toilet # Voids 2 - Exam This is a 33-year-old male in no acute distress. He is alert and oriented 3. His significant other is in bed with him currently. Exam of the left upper extremity reveals that his dressing is saturated with sanguinous drainage. Dressing is changed. Packing has not changed today. We do not have iodoform on the floor. The arm is improving. Less erythema and less swelling today. He has fairly good elbow and wrist motion. Neurovascular status to the upper extremity is intact. - Labs CBC & Chem 7: 08/12/18 10:30 08/12/18 10:30 Labs: Abnormal Lab Results - Last 24 Hours (Table) 08/11/18 08/13/18 Range/Units 01:50 08:41 Lipase 17 L (23-300) U/L Hep Bs Antigen Reactive H (Non-Reactive) Microbiology - Last 24 Hours (Table) 08/12/18 14:52 Gram Stain - Preliminary Arm - Left Wound Culture - Preliminary 08/12/18 14:52 Gram Stain - Preliminary Arm - Left Wound Culture - Preliminary 08/11/18 01:50 Blood Culture - Preliminary Blood No Growth after 48 hours 08/12/18 14:52 Anaerobic Culture - Preliminary Arm - Left 08/12/18 14:52 Anaerobic Culture - Preliminary Arm - Left Assessment and Plan (1) Abscess of left arm Current Visit: Yes Status: Acute Code(s): L02.414 - CUTANEOUS ABSCESS OF LEFT UPPER LIMB SNOMED Code(s): 312651702 (2) Cellulitis of left arm Current Visit: Yes Status: Acute Code(s): L03.114 - CELLULITIS OF LEFT UPPER LIMB SNOMED Code(s): 127490471 (3) History of intravenous drug abuse Current Visit: Yes Status: Acute Code(s): Z87.898 - PERSONAL HISTORY OF OTHER SPECIFIED CONDITIONS SNOMED Code(s): 52719757495064217 Plan: The clinical findings are discussed with the patient. We will continue daily dressing changes. Packing will be changed tomorrow. When he is discharged home he will need to do daily packing and dressing changes on his own. He may discharge to home when cleared with internal medicine and infectious disease. The patient's girlfriend is advised to refrain from sleeping in the same bed with his current infection. She does not seem to be too concerned about it.
--- NOTE | 2018-08-13 23:46 | PN ---
PROGRESS NOTE DATE OF SERVICE: 08/13/2018. REASON FOR FOLLOWUP: Left antecubital fossa abscess from IV drug use. INTERVAL HISTORY: The patient is currently afebrile, has been breathing comfortably. Overall pain to the left arm is currently controlled. No nausea, vomiting, abdominal pain or diarrhea. PHYSICAL EXAMINATION: Blood pressure 111/67, pulse 82, pulse ox on room air. GENERAL DESCRIPTION: An elderly male lying in bed in no distress. The left lower extremity is currently dressed up. No obvious drainage on the dressing. LABS: Hemoglobin is 10.8, white count 4.7, BUN of 9, creatinine 0.48. Cultures currently pending. DIAGNOSTIC IMPRESSION AND PLAN: Patient with left antecubital fossa abscess from IV drug use, status post drainage of the . Culture currently pending. The patient is to continue cefepime and vancomycin while waiting for the culture to finalize. Continue supportive care. MMODL / IJN: [id number] /
[2018-08-14] MEDS ORDERED: VANCOMYCIN TROUGH DUE 1 EACH MISC MISCELLANE ONE (03:00)
[2018-08-14] MEDS: VANCOMYCIN 1,750 MG in SODIUM CHLORIDE 0.9% 500 ML 500 ML IVPB SCH ×2 (04:02→12:22)
[2018-08-14 04:07] LABS: Anion Gap 6 mmol/L; Blood Urea Nitrogen 8 mg/dL (9-20); Calcium 8.3 mg/dL (8.4-10.2); Carbon Dioxide 25 mmol/L (22-30); Chloride 107 mmol/L (98-107); Glucose 83 mg/dL (74-99); Sodium 138 mmol/L (137-145)
[2018-08-14] MEDS: CEFEPIME 2 GM in SODIUM CHLORIDE 0.9% 100 ML IVPB SCH ×2 (07:33→21:08)
[2018-08-14] MEDS: SODIUM CHLORIDE 0.9% 1,000 ML IV SCH ×2 (07:34→21:09)
--- NOTE | 2018-08-14 07:50 | P.PN ---
Subjective Progress Note Date: 08/14/18 Principal diagnosis: Abscess left elbow. IV drug use. This is a 33-year-old male who is status post I&D of the left antecubital fossa for abscess secondary to IV drug use. Today is postoperative day #2. He has no new complaints or concerns today. Vital signs are stable. He states his pain is minimal. Objective - Vital Signs Vital signs: Vital Signs Temp 97.7 F 08/14/18 05:35 Pulse 50 L 08/14/18 05:35 Resp 16 08/14/18 05:35 BP 126/82 08/14/18 05:35 Pulse Ox 99 08/14/18 05:35 Intake & Output 08/13/18 08/14/18 08/14/18 18:59 06:59 18:59 Intake Total 590 Balance 590 Intake: Oral 590 Other: Voiding Method Toilet # Voids 2 2 - Exam This is a 33-year-old male in no acute distress. He is alert and oriented 3. His significant other is in bed with him currently. Exam of the left upper extremity reveals that his dressing is saturated with sanguinous drainage. Dressing and packing are changed today. The arm is improving. Wound edges looks fairly clean. Less erythema and less swelling today. He has fairly good elbow and wrist motion. Neurovascular status to the upper extremity is intact. - Labs CBC & Chem 7: 08/12/18 10:30 08/14/18 03:36 Labs: Abnormal Lab Results - Last 24 Hours (Table) 08/13/18 08/14/18 Range/Units 08:41 03:36 BUN 8 L (9-20) mg/dL Creatinine 0.37 L (0.66-1.25) mg/dL Calcium 8.3 L (8.4-10.2) mg/dL Lipase 17 L (23-300) U/L Microbiology - Last 24 Hours (Table) 08/11/18 01:50 Blood Culture - Preliminary Blood No Growth after 72 hours 08/12/18 14:52 Gram Stain - Preliminary Arm - Left Wound Culture - Preliminary 08/12/18 14:52 Gram Stain - Preliminary Arm - Left Wound Culture - Preliminary Assessment and Plan (1) Abscess of left arm Current Visit: Yes Status: Acute Code(s): L02.414 - CUTANEOUS ABSCESS OF LEFT UPPER LIMB SNOMED Code(s): 227247073 (2) Cellulitis of left arm Current Visit: Yes Status: Acute Code(s): L03.114 - CELLULITIS OF LEFT UPPER LIMB SNOMED Code(s): 699882233 (3) History of intravenous drug abuse Current Visit: Yes Status: Acute Code(s): Z87.898 - PERSONAL HISTORY OF OTHER SPECIFIED CONDITIONS SNOMED Code(s): 43539371890164812 Plan: The clinical findings are discussed with the patient. We will continue daily dressing changes. Packing will be changed daily. When he is discharged home he will need to do daily packing and dressing changes on his own. He may discharge to home when cleared with internal medicine and infectious disease.
[2018-08-14] MEDS ORDERED: Acetaminophen-Codeine 300-30mg TAB PO PRN (10:06)
--- NOTE | 2018-08-14 10:11 | P.PN ---
Subjective Progress Note Date: 08/14/18 Principal diagnosis: Left antecubital abscess Patient was seen and examined. No acute events overnight. Packing removed and changed by nursing. Patient reports no changes in the swelling of his left upper extremity. He denies any pain at this time. No fever or chills. No n ausea or vomiting. Requesting Tylenol PM. Objective - Vital Signs Vital signs: Vital Signs Temp 97.7 F 08/14/18 05:35 Pulse 50 L 08/14/18 05:35 Resp 16 08/14/18 05:35 BP 126/82 08/14/18 05:35 Pulse Ox 99 08/14/18 05:35 Intake & Output 08/13/18 08/14/18 08/14/18 18:59 06:59 18:59 Intake Total 590 Balance 590 Intake: Oral 590 Other: Voiding Method Toilet # Voids 2 3 - Exam General: [non toxic], [no distress], [appears at stated age] Derm: [warm], [dry] Head: [atraumatic], [normocephalic], [symmetric] Eyes: [EOMI], [no lid lag], [anicteric sclera] Mouth: [no lip lesion], [mucus membranes moist] Cardiovascular: [S1S2 reg], [no murmur], [positive radial pulse bilateral] Lungs: [CTA bilateral], [no rhonchi, no rales] , [no accessory muscle use] Abdominal: [soft], [ nontender to palpation], [no guarding], [no appreciable organomegaly] Ext: [no gross muscle atrophy], [left upper extremity, antecubital fossa wrapped dressing clean dry and intact] Neuro: [no focal neuro deficits] Psych: [Alert], [oriented], [appropriate affect] - Labs CBC & Chem 7: 08/12/18 10:30 08/14/18 03:36 Labs: Abnormal Lab Results - Last 24 Hours (Table) 08/14/18 Range/Units 03:36 BUN 8 L (9-20) mg/dL Creatinine 0.37 L (0.66-1.25) mg/dL Calcium 8.3 L (8.4-10.2) mg/dL Microbiology - Last 24 Hours (Table) 08/11/18 01:50 Blood Culture - Preliminary Blood No Growth after 72 hours 08/12/18 14:52 Gram Stain - Preliminary Arm - Left Wound Culture - Preliminary 08/12/18 14:52 Gram Stain - Preliminary Arm - Left Wound Culture - Preliminary Assessment and Plan Assessment: Assessment and Plan 1. Abscess of the left upper extremity secondary to IVDA 2. Cellulitis of the left upper extremity 3. Transaminitis 4. Hepatitis B 5. History of IVDA 1. Patient afebrile with mild leukocytosis of 11.7 with neutrophilia on admission, resolved on day 2. Confirmed on CT. Seen by orthopedic surgery, status post I&D 08/12/2018. Pain management with ibuprofen and Toradol. Zofran as needed for nausea or vomiting. Continue IV vancomycin. ID consulted, Zosyn discontinued for IV cefepime. Blood cultures prelim negative at 72 hours. Wound culture so far negative. Will follow orthopedic, ID recommendations. Follow blood cultures, wound cultures. 2. Management as above. 3. Total bilirubin 1.4, AST 150, ALTs 434. Likely secondary to active acute hepatitis B infection. Daily CMP. 4. Hep B core IgM positive, surface antigen positive. Acute infection. Daily CMP. Will need adequate outpatient follow-up. 5. No concerns for withdrawal at this time. Also social work recommendations. Patient admitted for abscess of the left upper extremity and cellulitis. Wound cultures pending. We'll follow ID recommendations, IV versus antibiotics by mouth on discharge. Would prefer antibiotics by mouth due to history of IV drug abuse. Likely discharge in 1-2 days.
[2018-08-14] MEDS: diphenhydrAMINE 25 MG CAP PO PRN ×2 (12:21→21:08)
--- NOTE | 2018-08-15 00:09 | PN ---
PROGRESS NOTE DATE OF SERVICE: 08/14/2018. REASON FOR FOLLOWUP: Left antecubital fossa abscess. INTERVAL HISTORY: The patient is currently afebrile. Patient is breathing comfortably. Left arm swelling and pain is currently controlled. No nausea, no vomiting. No abdominal pain, no diarrhea. EXAMINATION: Blood pressure is 122/66 with a pulse of 52, temperature 97.7, he is 100% on room air. GENERAL DESCRIPTION: A middle-aged male lying in bed in no distress. RESPIRATORY SYSTEM: Unlabored breathing. LUNGS: Clear to auscultation anteriorly. HEART: S1, S2. Regular rate and rhythm. ABDOMEN: Soft, no tenderness. EXTREMITIES: Left arm is dressed up with drainage on the dressing. LABS: BUN of 8, creatinine 0.37. Culture so far negative. DIAGNOSTIC IMPRESSION AND PLAN: Patient with left antecubital fossa abscess, status post drainage. Culture so far negative for resistant pathogen. Did show some gram positive cocci in pairs, possible . Will wait for the culture to finalize. Keep the patient on vancomycin and cefepime at this point with discharge plan depending on culture report. Continue supportive care. MMODL / IJN: [id number] /
[2018-08-15] MEDS: VANCOMYCIN 1,750 MG in SODIUM CHLORIDE 0.9% 500 ML 500 ML IVPB SCH ×3 (02:11→17:34)
[2018-08-15] MEDS: CEFEPIME 2 GM in SODIUM CHLORIDE 0.9% 100 ML IVPB SCH (07:53)
[2018-08-15] MEDS: SODIUM CHLORIDE 0.9% 1,000 ML IV SCH (10:18)
[2018-08-15 11:04] LABS: HCT 35.7 % (39.0-53.0); HGB 11.6 gm/dL (13.0-17.5); MCH 30.6 pg (25.0-35.0); MCHC 32.5 g/dL (31.0-37.0); MCV 94.1 fL (80.0-100.0); Platelet Count 238 k/uL (150-450); RDW 14.4 % (11.5-15.5); WBC 4.5 k/uL (3.8-10.6)
[2018-08-15 11:11] LABS: ALT 308 U/L (21-72); AST 159 U/L (17-59); Albumin 2.7 g/dL (3.5-5.0); Alkaline Phosphatase 86 U/L (38-126); Anion Gap 3 mmol/L; Blood Urea Nitrogen 9 mg/dL (9-20); Calcium 8.4 mg/dL (8.4-10.2); Carbon Dioxide 28 mmol/L (22-30); Chloride 108 mmol/L (98-107); Glucose 86 mg/dL (74-99); Potassium 4.3 mmol/L (3.5-5.1); Sodium 139 mmol/L (137-145); Total Bilirubin 1.3 mg/dL (0.2-1.3); Total Protein 5.3 g/dL (6.3-8.2)
[2018-08-15] MEDS: diphenhydrAMINE 25 MG CAP PO PRN ×2 (12:57→20:10)
--- NOTE | 2018-08-15 15:18 | P.PN ---
Subjective Progress Note Date: 08/15/18 Principal diagnosis: abscess patient was seen and examined. No acute events overnight. Patient with no complaints. Objective - Vital Signs Vital signs: Vital Signs Temp 98.2 F 08/15/18 13:00 Pulse 53 L 08/15/18 13:00 Resp 16 08/15/18 13:00 BP 131/79 08/15/18 13:00 Pulse Ox 100 08/15/18 13:00 Intake & Output 08/14/18 08/15/18 08/15/18 18:59 06:59 18:59 Intake Total 590 600 Balance 590 600 Intake: Intake, IV Titration 600 Amount Cefepime 2 gm In Sodium 100 Chloride 0.9% 100 ml @ 200 mls/hr IVPB Q12HR GEORGE Rx#:[id number] Vancomycin 1,750 mg In 500 Sodium Chloride 0.9% 500 ml 500 ml @ 166.667 mls/ hr IVPB Q8H GEORGE Rx#: [id number] Oral 590 Other: Voiding Method Toilet Toilet # Voids 3 2 4 - Exam General: [non toxic], [no distress], [appears at stated age] Derm: [warm], [dry] Head: [atraumatic], [normocephalic], [symmetric] Eyes: [EOMI], [no lid lag], [anicteric sclera] Mouth: [no lip lesion], [mucus membranes moist] Cardiovascular: [S1S2 reg], [no murmur], [positive radial pulse bilateral] Lungs: [CTA bilateral], [no rhonchi, no rales] , [no accessory muscle use] Abdominal: [soft], [ nontender to palpation], [no guarding], [no appreciable organomegaly] Ext: [no gross muscle atrophy], [left upper extremity, antecubital fossa wrapped dressing clean dry and intact] Neuro: [no focal neuro deficits] Psych: [Alert], [oriented], [appropriate affect] - Labs CBC & Chem 7: 08/15/18 10:40 08/15/18 10:40 Labs: Abnormal Lab Results - Last 24 Hours (Table) 08/15/18 08/15/18 Range/Units 10:40 10:40 RBC 3.80 L (4.30-5.90) m/uL Hgb 11.6 L (13.0-17.5) gm/dL Hct 35.7 L (39.0-53.0) % Chloride 108 H (98-107) mmol/L Creatinine 0.44 L (0.66-1.25) mg/dL AST 159 H (17-59) U/L ALT 308 H (21-72) U/L Total Protein 5.3 L (6.3-8.2) g/dL Albumin 2.7 L (3.5-5.0) g/dL Microbiology - Last 24 Hours (Table) 08/11/18 01:50 Blood Culture - Preliminary Blood No Growth after 96 hours 08/12/18 14:52 Gram Stain - Final Arm - Left Wound Culture - Final 08/12/18 14:52 Anaerobic Culture - Preliminary Arm - Left Assessment and Plan Assessment: Assessment and Plan 1. Abscess of the left upper extremity secondary to IVDA 2. Cellulitis of the left upper extremity 3. Transaminitis 4. Hepatitis B 5. History of IVDA 1. Patient afebrile with mild leukocytosis of 11.7 with neutrophilia on admission, resolved on day 2. Confirmed on CT. Seen by orthopedic surgery, status post I&D 08/12/2018. Pain management with ibuprofen and Toradol. Zofran as needed for nausea or vomiting. Continue IV vancomycin. ID consulted, Zosyn discontinued for IV cefepime. Blood cultures prelim negative at 96 hours. Wound culture so far negative. Will follow orthopedic, ID recommendations. Follow blood cultures, wound cultures. 2. Management as above. 3. Total bilirubin 1.4, AST 150, ALTs 434. Likely secondary to active acute hepatitis B infection. Daily CMP. 4. Hep B core IgM positive, surface antigen positive. Acute infection. Daily CMP. Will need adequate outpatient follow-up. 5. No concerns for withdrawal at this time. Also social work recommendations. Patient admitted for abscess of the left upper extremity and cellulitis. Discussed with infectious disease Dr. Barksdale, waiting on final wound cultures for discharge. Can probably go home on Bactrim by mouth. DC tomorrow.
[2018-08-15 22:14] VITALS: RESP 18
--- NOTE | 2018-08-15 22:28 | PN ---
PROGRESS NOTE DATE OF SERVICE: 08/15/2018 REASON FOR FOLLOWUP: Left antecubital fossa abscess. INTERVAL HISTORY: The patient was seen on rounds this morning. His discharge has been put on hold, as the patient's cultures were not final. Patient's pain to the left antecubital fossa area is currently controlled. Denies having any chest pain or shortness of breath or cough. No abdominal pain and no diarrhea. PHYSICAL EXAMINATION: Blood pressure is 131/79 with a pulse of 53, temperature 98.2. He is 100% on room air. General description is a middle-aged male lying in bed in no distress. RESPIRATORY SYSTEM: Unlabored breathing. Clear to auscultation anteriorly. HEART: S1, S2. Regular rate and rhythm. ABDOMEN: Soft. No tenderness. Left antecubital fossa abscess wound is currently deep. No slough tissue. No surrounding redness or any drainage. LABS: Hemoglobin is 11.6, white count 4.5, BUN of 9, creatinine 0.44. Culture now with Staph epidermidis. DIAGNOSTIC IMPRESSION AND PLAN: Patient with left antecubital fossa abscess, status post drainage. Culture grew Staph epidermidis. This culture has been finalized now; it was not available this morning, and hence discharge was put on hold. The patient will be able to go home in the a.m. on Bactrim DS one twice a day, local wound care with Aquacel Silver packing, dry, and follow up with the wound care center next week to continue local wound care. Continue with supportive care. MMODL / IJN: [id number] /
[2018-08-16] MEDS: VANCOMYCIN 1,750 MG in SODIUM CHLORIDE 0.9% 500 ML 500 ML IVPB SCH ×2 (01:47→10:23)
[2018-08-16] MEDS: SODIUM CHLORIDE 0.9% 1,000 ML IV SCH ×2 (05:44→10:23)
[2018-08-16 07:04] VITALS: BP 130/78; PULSE 44; TEMP 97.6
--- NOTE | 2018-08-16 08:58 | P.DS ---
Providers Date of admission: 08/11/18 04:09 Expected date of discharge: 08/16/18 Attending physician: Julia Ruffin DO Consults: 08/12/18 16:38 Consult Physician Routine Consulting Provider: Dmitry Cunningham Consult Reason/Comments: left antecubital abscess Do you want consulting provider notified?: Already Contacted 08/12/18 16:39 Consult Physician Routine Consulting Provider: Ra Barksdale Consult Reason/Comments: left arm abscess Do you want consulting provider notified?: Already Contacted Primary care physician: Stated None Hospital Course: 33-year-old male with a past medical history of IV drug abuse, previous MRSA abscess of the axilla and gluteal area who presents to the ER via private vehicle with chief complaint of left forearm crease pain and swelling. Apparently the patient symptoms started as a bump in that area over a week ago and gradually became more swollen and erythematous and more painful. The patient presented to the ER and was seen 08/08/18 and had a reported I&D in the ER and was discharged home on Bactrim, with no improvement of his symptoms. The patient actually reports that it's gotten even more swollen and red and tender. The patient denies any subjective fevers chills or night sweats and reports to intermittent IV drug use. States he is currently taking Suboxone. Patient denies any shortness breath, chest pain, abdominal pain, nausea, vomiting, diarrhea, constipation, back pain, numbness, tingling, dizziness, weakness, hematuria, dysuria, urinary urgency, urinary frequency, headache, visual changes, or any other complaints. Review of records indicates that the patient ID cultures grew MRSA and beta hemolytic strep. In the ER the patient had a comprehensive workup and was noted to have a mild leukocytosis of 11.7 and he was started on empiric IV antibiotics with vancomycin and Zosyn after left upper extremity CT confirmed a 3.2 cm abscess in that and a cubicle fossa with surrounding cellulitis. The patient is recommended for admission to be seen by ID and orthopedics and for IV antibiotics. With regard to his left antecubital abscess, patient is afebrile with a mild leukocytosis of 11.7 with neutrophilia on admission which resolved on day 2. Orthopedic surgery was consulted and I&D was performed on 08/12/2018. His pain was managed with ibuprofen and Toradol. He was given Zofran as needed for nausea and vomiting. Patient was initially started on IV vancomycin and IV Zosyn. Infectious disease was consulted and recommended discontinuing IV Zosyn and started IV cefepime instead. Blood cultures were prelim negative at 96 hours. Wound cultures grew staph epidermidis sensitive to Bactrim. Patient was noted to have elevated LFT to admission. Total bilirubin is 1.4, AST of 150 and ALTs of 434 at the time of discharge. This is likely secondary to an acute active hepatitis B infection. Hepatitis B core IgM antibody was positive along with surface antigen. Patient was advised to follow-up with his primary care provider for further workup and treatment. He was also advised of the infectious nature of this disease. Patient was seen and examined prior to discharge. No acute events overnight. Patient with no complaints this morning. He denies chest pain, shortness breath or palpitations. No nausea or vomiting. No fever or chills. General: [non toxic], [no distress], [appears at stated age] Derm: [warm], [dry] Head: [atraumatic], [normocephalic], [symmetric] Eyes: [EOMI], [no lid lag], [anicteric sclera] Mouth: [no lip lesion], [mucus membranes moist] Cardiovascular: [S1S2 reg], [no murmur], [positive radial pulse bilateral] Lungs: [CTA bilateral], [no rhonchi, no rales] , [no accessory muscle use] Abdominal: [soft], [ nontender to palpation], [no guarding], [no appreciable organomegaly] Ext: [no gross muscle atrophy], [left upper extremity, antecubital fossa wrapped dressing clean dry and intact] Neuro: [no focal neuro deficits] Psych: [Alert], [oriented], [appropriate affect] Assessment and Plan 1. Abscess of the left upper extremity secondary to IVDA 2. Cellulitis of the left upper extremity 3. Transaminitis 4. Hepatitis B 5. History of IVDA 1. Patient afebrile with mild leukocytosis of 11.7 with neutrophilia on admission, resolved on day 2. Confirmed on CT. Seen by orthopedic surgery, status post I&D 08/12/2018. Pain management with ibuprofen and Toradol. Zofran as needed for nausea or vomiting. Continue IV vancomycin. ID consulted, Zosyn discontinued for IV cefepime. Blood cultures prelim negative at 120 hours. Wound culture grew staph epidermidis sensitive to Bactrim. Will follow orthopedic, ID recommendations. Follow blood cultures, wound cultures. 2. Management as above. 3. Total bilirubin 1.4, AST 150, ALTs 434. Likely secondary to active acute hepatitis B infection. Daily CMP. 4. Hep B core IgM positive, surface antigen positive. Acute infection. Daily CMP. Will need adequate outpatient follow-up. 5. No concerns for withdrawal at this time. Also social work recommendations. Patient admitted for abscess of the left upper extremity and cellulitis. Discussed with infectious disease Dr. Barksdale, patient to be discharged on Bactrim by mouth. Need adequate follow-up for hepatitis B. DC today. Patient Condition at Discharge: Serious Plan - Discharge Summary New Discharge Prescriptions: Continue Sulfamethox-Tmp 800-160Mg [Bactrim DS 800-160 mg] 1 tab PO Q12HR #28 tab Discharge Medication List Sulfamethox-Tmp 800-160Mg [Bactrim DS 800-160 mg] 1 tab PO Q12HR #28 tab 08/16/18 [Rx] Follow up Appointment(s)/Referral(s): Brigette Lang PAC [PHYSICIAN [employer]] - 1 Week Genaro Melton MD [REFERRING] - 1-2 days Ra Barksdale MD [STAFF PHYSICIAN] - 1 Week Patient Instructions/Handouts: Sepsis (GEN), Abscess (ED) Activity/Diet/Wound Care/Special Instructions: Aquacel silver packing left arm to be changed daily follow up in wound care center with Dr Barksdale in 1 week call [phone] to make an appointment Follow-up PCP within 1-2 days of discharge. Patient is hepatitis B positive. Patient follow-up PCP in order for further workup and management. Discharge Disposition: HOME SELF-CARE
--- NOTE | 2018-08-16 12:32 | PN ---
PROGRESS NOTE DATE OF SERVICE: 08/16/2018 REASON FOR FOLLOWUP: Left antecubital fossa abscess. INTERVAL HISTORY: The patient is afebrile. He was seen early this morning. The patient denies having any chest pain or shortness of breath. No cough or abdominal pain. Pain to the left antecubital fossa is currently controlled. PHYSICAL EXAMINATION: Blood pressure 130/78, temperature 97.6, he is 100% on room air. General description is a middle aged male, up in the bed in no distress. RESPIRATORY SYSTEM: Unlabored breathing, clear to auscultation anteriorly. HEART: S1, S2. Regular rhythm and rhythm. ABDOMEN: Soft, no tenderness. LABS: No new labs have been obtained today. Culture from wound finalized with Staphylococcus epidermidis. DIAGNOSTIC IMPRESSION AND PLAN: Patient with left antecubital fossa abscess, status post drainage, culture with Staphylococcus epidermidis, Bactrim sensitive. Came in with Bactrim DS twice a day. Local wound care with Aquacel packing and follow up in the Wound Care Center. All questions were answered. MMODL / IJN: [id number] /
[2018-08-17] MEDS ORDERED: VANCOMYCIN TROUGH DUE 1 EACH MISC MISCELLANE ONE (09:00)
== END 2018-08-16 12:00 | disposition home or self-care (01) | DRG 501 ==
LOC: EC 01:10 → 3NMEDONC 04:09
PROVIDERS: ADMIT Internal Medicine; ATTEND Internal Medicine
PROC: 0K9B0ZX Drainage of Left Lower Arm and Wrist Muscle, Open Approach, Diagnostic (ICD-10-PCS; 2018-08-12)
PROC: 0KBB0ZZ Excision of Left Lower Arm and Wrist Muscle, Open Approach (ICD-10-PCS; principal; 2018-08-12 10:00)
DX: M60.009 Infective myositis, unspecified site (principal); L03.114 Cellulitis of left upper limb; B16.9 Acute hepatitis B without delta-agent and without hepatic coma; F11.10 Opioid abuse, uncomplicated; F17.210 Nicotine dependence, cigarettes, uncomplicated; F32.9 Major depressive disorder, single episode, unspecified; F41.9 Anxiety disorder, unspecified; B95.62 Methicillin resistant Staphylococcus aureus infection as the cause of diseases classified elsewhere; B95.4 Other streptococcus as the cause of diseases classified elsewhere; Z86.14 Personal history of Methicillin resistant Staphylococcus aureus infection; R74.0 Nonspecific elevation of levels of transaminase and lactic acid dehydrogenase [LDH]
CPT/HCPCS: 10160; 36415; 76705; 80048; 80053; 80074; 80202; 81003; 82150; 83605; 83690; 85025; 85027; 85610; 85730; 87040; 87070; 87075; 87077; 87186; 87205; 87340; 87390; 96365; 96366; 96368; 96375; 99284

== ENCOUNTER 2020-10-22 17:23 | Emergency (ER) | payer OTHER ==
[2020-10-22 17:32] VITALS: BP 165/99; PULSE 71; RESP 18; TEMP 97.6
== END 2020-10-22 18:37 ==
LOC: EC 17:23
DX: Z00.00 Encounter for general adult medical examination without abnormal findings (principal)
CPT/HCPCS: 99499

== ENCOUNTER 2024-05-06 20:23 | Emergency (ER) | payer OTHER ==
[2024-05-06 20:37] VITALS: RESP 18; TEMP 98.4
[2024-05-06 21:17] LABS: Basophils % (A) 0 %; Eosinophils # (A) 0.1 k/uL (0-0.7); Eosinophils % (A) 1 %; HCT 42.6 % (39.0-53.0); HGB 14.1 gm/dL (13.0-17.5); Lymphocytes # (A) 1.8 k/uL (1.0-4.8); Lymphocytes % (A) 29 %; MCHC 33.1 g/dL (31.0-37.0); MCV 90.5 fL (80.0-100.0); Mean Platelet Volume 9.6; Monocytes # (A) 0.4 k/uL (0-1.0); Monocytes % (A) 7 %; Neutrophils # (A) 3.7 k/uL (1.3-7.7); Neutrophils % (A) 61 %; Platelet Count 186 k/uL (150-450); RDW 12.4 % (11.5-15.5)
[2024-05-06 21:31] LABS: ALT 16 U/L (4-49); AST 24 U/L (17-59); African American GFR (CKD) >90 (>60 ml/min/1.73 sqM); Albumin 4.9 g/dL (3.5-5.0); Alkaline Phosphatase 52 U/L (38-126); Anion Gap 9 mmol/L; Blood Urea Nitrogen 17 mg/dL (9-20); Calcium 9.7 mg/dL (8.4-10.2); Carbon Dioxide 28 mmol/L (22-30); Chloride 104 mmol/L (98-107); Glucose 104 mg/dL (74-99); Magnesium 1.9 mg/dL (1.6-2.3); Non-African American GFR(CKD) >90 (>60 ml/min/1.73 sqM); Sodium 141 mmol/L (137-145); Total Bilirubin 0.6 mg/dL (0.2-1.3); Total Protein 7.8 g/dL (6.3-8.2)
[2024-05-06 21:38] LABS: Partial Thromboplastin Time 28.4 sec (22.0-30.0); Prothrombin Time 10.7 sec (10.0-12.5)
--- NOTE | 2024-05-06 21:51 | XR ---
EXAMINATION TYPE: XR chest 2V DATE OF EXAM: 05/06/2024 9:46 PM COMPARISON: Previous chest radiograph 05/30/2015. CLINICAL INDICATION: Male, 39 years old with history of Chest Pain; [facility] TECHNIQUE: XR chest 2V Frontal and lateral views of the chest. FINDINGS: Lungs/Pleura: There is no evidence of pleural effusion, focal consolidation, or pneumothorax. Pulmonary vascularity: Unremarkable. Heart/mediastinum: Cardiomediastinal silhouette is unremarkable. Musculoskeletal: No acute osseous pathology. Other findings: None IMPRESSION: No acute cardiopulmonary disease/process. [facility], , 05/06/2024 9:49 PM
--- NOTE | 2024-05-06 22:13 | ED ---
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 Patient states began a few days ago when he woke up. Is intermittent, seems to be exacerbated by turning his head and certain movements, feels like a muscle spasm from the very top of his chest just under the left collarbone towards the base of his neck. He denies any difficulty breathing/shortness of breath, cough or hemoptysis, fevers or chills, sore throat runny nose, abdominal pain, nausea, vomiting, numbness, weakness, slurred speech, changes in vision, dizziness, lightheadedness. Pain does not radiate towards the back or down his arm. He has no first-degree relatives with prior CO or CVA. He is a non-smoker. He has no history of hypertension, hyperlipidemia, diabetes, high cholesterol. Patient took 4 baby aspirin earlier in the afternoon today prior to arrival, has not trialed any other medications. - Related Data Previous Rx's Medication Instructions Recorded Sulfamethox-Tmp 800-160Mg [Bactrim 1 tab PO Q12HR #28 tab 08/16/18 DS 800-160 mg] Allergies Allergy/AdvReac Type Severity Reaction Status Date / Time No Known Allergies Allergy Verified 05/06/24 20:37 Review of Systems ROS Statement: Those systems with pertinent positive or pertinent negative responses have been documented in the HPI. ROS Other: All systems not noted in ROS Statement are negative. Past Medical History Past Medical History: No Reported History History of Any Multi-Drug Resistant Organisms: MRSA Date of last positivie culture/infection: 08/08/18 MDRO Source:: ARM Past Surgical History: Adenoidectomy, Tonsillectomy Past Psychological History: Anxiety, Depression Smoking Status: Current every day smoker Past Alcohol Use History: None Reported Past Drug Use History: Heroin, Marijuana - Past Family History Mother History Unknown: Yes General Exam - General Exam Comments Initial Comments: PE: CONSTITUTIONAL: No apparent distress, well appearing SKIN: Warm, dry, no jaundice, hives or petechiae EYES: Pupils are equally round, extraocular movements intact without nystagmus, clear conjunctiva, non-icteric sclera HENT: Normocephalic, atraumatic, moist mucus membranes, oropharynx clear without exudates NECK: , Full range of motion, normal appearance PULMONARY: Clear to auscultation without wheezes, rhonchi, or rales, normal excursion, no accessory muscle use and no stridor CARDIOVASCULAR: No carotid bruits, regular rate, rhythm, normal S1 and S2. No appreciated murmurs, rubs or gallops. Strong radial and DP pulses with intact distal perfusion. No lower extremity edema GASTROINTESTINAL: Soft, active bowel sounds throughout, non-tender, non- distended, no palpable masses, no rebound or guarding. No hepatosplenomegaly MUSCULOSKELETAL: Extremities have no gross deformity, no edema, redness, or swelling. No calf swelling NEUROLOGIC:_a/o x 3, GCS 15, normal mentation and speech. Moves all extremities x 4 without motor or sensory deficit PSYCHIATRIC:_normal mood and affect, thought process is clear and linear Limitations: no limitations Course Vital Signs 05/06/24 05/06/24 05/06/24 20:35 22:24 22:59 Temperature 98.4 F 98.4 F Pulse Rate 72 51 L 53 L Respiratory 18 18 18 Rate Blood Pressure 160/91 133/81 118/70 O2 Sat by Pulse 99 98 98 Oximetry EKG Findings - EKG Comments: EKG Findings:: Sinus rhythm, rate 72 bpm, OR interval 180 ms, QRS duration 104 ms, QT/QTc 4 4/429 ms, normal axis, no ST elevations or depressions, no arrhythmia, delta waves or brugada pattern Medical Decision Making - Medical Decision Making Was pt. sent in by a medical professional or institution (, PA, COLLOID MILL OPERATOR, urgent care, hospital, or prison...) When possible be specific @ -No Did you speak to anyone other than the patient for history (EMS, parent, family, police, friend...)? What history was obtained from this source @ -No Did you review nursing and triage notes (agree or disagree)? Why? @ -I reviewed and agree with nursing and triage notes Were old charts reviewed (outside hosp., previous admission, EMS record, old EKG, old radiological studies, urgent care reports/EKG's, prison records)? Report findings @ -Medical records reviewed Differential Diagnosis (chest pain, altered mental status, abdominal pain women, abdominal pain men, vaginal bleeding, weakness, fever, dyspnea, syncope, headache, dizziness, GI bleed, back pain, seizure, CVA, palpatations, mental health, musculoskeletal)? @Differential Chest Pain: ACS pericarditis, pleurisy, chostochondirits, Pneumothorax, Musculoskeletal, Esophageal Spasm GERD, Cholecystitis, muscle spasm, Zoster, this is not meant to be an all-inclusive list. EKG interpreted by me (3pts min.). @ -As above X-rays interpreted by me (1pt min.). @ -Reviewed patient's chest x-ray, I see no cardiomegaly, consolidations or pleural effusions or pneumothorax CT interpreted by me (1pt min.). @ -None done U/S interpreted by me (1pt. min.). @ -None done What testing was considered but not performed or refused? (CT, X-rays, U/S, labs)? Why? @ -None What meds were considered but not given or refused? Why? @ -None Did you discuss the management of the patient with other professionals (professionals i.e. , PA, COLLOID MILL OPERATOR, lab, RT, psych nurse, social services, support clerk, teacher, chief investment officer, caser in)? Give summary @ -No Was smoking cessation discussed for >3mins.? @ -No Was critical care preformed (if so, how long)? @ -No Were there social determinants of health that impacted care today? How? (Homelessness, low income, unemployed, alcoholism, drug addiction, transportation, low edu. Level, literacy, decrease access to med. care, snf, rehab)? @ -No Was there de-escalation of care discussed even if they declined (Discuss DNR or withdrawal of care, Hospice)? @ -No What co-morbidities impacted this encounter? (DM, HTN, Smoking, COPD, CAD, Cancer, CVA, ARF, Chemo, Hep., AIDS, mental health diagnosis, sleep apnea, morbid obesity)? @ -None Was patient admitted / discharged? Hospital course, mention meds given and route, prescriptions, significant lab abnormalities, going to OR and other pertinent info. @Discharged-this is a 39-year-old gentleman with past medical history of IV drug abuse, currently on methadone presenting today for chest pain. Patient states it started a few days ago, currently is 4/10. On my assessment he is well- appearing and comfortable. In no acute distress. Lungs are clear to a uscultation bilaterally, normal S1-S2 on cardiac exam with no murmurs rubs or gallops. 2+ pulses in all 4 extremities, no lower extremity edema, lungs clear to auscultation bilaterally. There is no skin changes overlying the area of pain. Patient states feel like a muscle spasm. Triage protocol labs were ordered, troponin less than 0.012, labs and imaging reviewed. Grossly within normal limits. Abnormal values not concerning for acute pathology related to presenting complaint. I do not feel repeat troponin indicated as pain has been ongoing for 2-3 days and would expect troponin elevation at this point if 2/2 cardiac etiology. Blood pressure on arrival was 160 systolic however on my ass essment 125 systolic. No tachycardia or hypoxia noted. I discussed with patient his reassuring workup thus far including normal EKG, chest x-ray and labs, will give Toradol and Zanaflex, reassess and anticipate discharge. Patient is agreeable plan of care. HEART score 1 (BMI >30). On reassessment patient endorses improvement in pain. He is comfortable with discharge at this point. In my medical judgment there is currently no evidence of an immediate life- threatening or surgical condition. Discharge is therefore indicated at this time. Discharge treatment instructions, follow up instructions, and appropriate emergency department return precautions were discussed with the patient and/or medical decision maker. Patient and/or medical decision maker expressed understanding of and agreed with the treatment plan, follow up instructions, and emergency department return precaution. All patient's and/or medical decision maker's questions were answered. The patient was advised that a small risk still exists that a serious condition could develop and was therefore instructed to return to the ED for any changes in symptoms, persistent symptoms, inability to obtain proper follow-up or for any further concerns. Patient received verbal and written instructions for this condition. Undiagnosed new problem with uncertain prognosis? @ -No Drug Therapy requiring intensive monitoring for toxicity (Heparin, Nitro, Insulin, Cardizem)? @ -No Were any procedures done? @ -No Diagnosis/symptom? @Muscle spasm, chest pain Acute, or Chronic, or Acute on Chronic? @ -Acute Uncomplicated (without systemic symptoms) or Complicated (systemic symptoms)? @ -Uncomplicated Side effects of treatment? @ -No Exacerbation, Progression, or Severe Exacerbation? @ -No Poses a threat to life or bodily function? How? (Chest pain, [place], CO, pneumonia, PE, COPD, DKA, ARF, appy, cholecystitis, CVA, Diverticulitis, Homicidal, Suicidal, threat to staff... and all critical care pts) @ -No, not at time of discharge - Lab Data Result diagrams: 05/06/24 20:58 05/06/24 20:58 Lab Results 05/06/24 05/06/24 05/06/24 Range/Units 20:58 20:58 20:58 WBC 6.0 (3.8-10.6) k/uL RBC 4.70 (4.30-5.90) m/uL Hgb 14.1 (13.0-17.5) gm/dL Hct 42.6 (39.0-53.0) % MCV 90.5 (80.0-100.0) fL MCH 30.0 (25.0-35.0) pg MCHC 33.1 (31.0-37.0) g/dL RDW 12.4 (11.5-15.5) % Plt Count 186 (150-450) k/uL MPV 9.6 Neutrophils % 61 % Lymphocytes % 29 % Monocytes % 7 % Eosinophils % 1 % Basophils % 0 % Neutrophils # 3.7 (1.3-7.7) k/uL Lymphocytes # 1.8 (1.0-4.8) k/uL Monocytes # 0.4 (0-1.0) k/uL Eosinophils # 0.1 (0-0.7) k/uL Basophils # 0.0 (0-0.2) k/uL PT 10.7 (10.0-12.5) sec INR 1.0 (<1.2) APTT 28.4 (22.0-30.0) sec Sodium 141 (137-145) mmol/L Potassium 5.0 (3.5-5.1) mmol/L Chloride 104 (98-107) mmol/L Carbon Dioxide 28 (22-30) mmol/L Anion Gap 9 mmol/L BUN 17 (9-20) mg/dL Creatinine 0.73 (0.66-1.25) mg/dL Est GFR (CKD-EPI)AfAm >90 (>60 ml/min/1.73 sqM) Est GFR (CKD-EPI)NonAf >90 (>60 ml/min/1.73 sqM) Glucose 104 H (74-99) mg/dL Calcium 9.7 (8.4-10.2) mg/dL Magnesium 1.9 (1.6-2.3) mg/dL Total Bilirubin 0.6 (0.2-1.3) mg/dL AST 24 (17-59) U/L ALT 16 (4-49) U/L Alkaline Phosphatase 52 (38-126) U/L Troponin I (0.000-0.034) ng/mL Total Protein 7.8 (6.3-8.2) g/dL Albumin 4.9 (3.5-5.0) g/dL 05/06/24 Range/Units 20:58 WBC (3.8-10.6) k/uL RBC (4.30-5.90) m/uL Hgb (13.0-17.5) gm/dL Hct (39.0-53.0) % MCV (80.0-100.0) fL MCH (25.0-35.0) pg MCHC (31.0-37.0) g/dL RDW (11.5-15.5) % Plt Count (150-450) k/uL MPV Neutrophils % % Lymphocytes % % Monocytes % % Eosinophils % % Basophils % % Neutrophils # (1.3-7.7) k/uL Lymphocytes # (1.0-4.8) k/uL Monocytes # (0-1.0) k/uL Eosinophils # (0-0.7) k/uL Basophils # (0-0.2) k/uL PT (10.0-12.5) sec INR (<1.2) APTT (22.0-30.0) sec Sodium (137-145) mmol/L Potassium (3.5-5.1) mmol/L Chloride (98-107) mmol/L Carbon Dioxide (22-30) mmol/L Anion Gap mmol/L BUN (9-20) mg/dL Creatinine (0.66-1.25) mg/dL Est GFR (CKD-EPI)AfAm (>60 ml/min/1.73 sqM) Est GFR (CKD-EPI)NonAf (>60 ml/min/1.73 sqM) Glucose (74-99) mg/dL Calcium (8.4-10.2) mg/dL Magnesium (1.6-2.3) mg/dL Total Bilirubin (0.2-1.3) mg/dL AST (17-59) U/L ALT (4-49) U/L Alkaline Phosphatase (38-126) U/L Troponin I <0.012 (0.000-0.034) ng/mL Total Protein (6.3-8.2) g/dL Albumin (3.5-5.0) g/dL Disposition Clinical Impression: Chest pain, Neck muscle spasm Disposition: HOME SELF-CARE Instructions (If sedation given, give patient instructions): Chest Pain (ED), Muscle Strain (ED) Additional Instructions: Every disease is a spectrum and a small chance still exists that a serious condition could develop, for this reason, please monitor yourself closely for new, changing or worsening symptoms, symptoms that persist beyond/improving 48 hours, difficulty breathing, swelling in your legs, coughing up blood or thick sputum fever, inability to tolerate/keep down fluids or your medications, inability to follow up with outpatient providers as instructed and should you experience these symptoms or should you have any further concerns for your wellbeing please return to the ED or call 911 immediately. Your pain can be treated with ibuprofen and acetaminophen. You can take up to 400-600 mg of ibuprofen (Advil, Motrin) 3 times daily (every 8 hours) but can also use lower doses if this relieves your pain. Some people prefer naproxen (Aleve, Naprosyn) which can be taken in doses of 500 mg up to twice a day. Do not take both of these medicines together, and do not combine either with ketorolac (Toradol), meloxicam (Mobic), or indomethacin (Tivorbex). Some people can develop stomach discomfort with higher doses of either ibuprofen or naproxen, if this develops decrease your dose or stop taking it. If you need to take this dose daily for more than a week, please schedule an appointment for re-evaluation with your PCP. Please take these medications with food. You can take up to 1000 mg of acetaminophen (Tylenol) every 6 hours. Be careful as this is included in some medicines like Nyquil, [place], Percocet, Vicodin, STANBACK, Goody's Powders, and Excedrin. You can also use lidocaine patches for topical pain. You can purchase 4% patches over the counter at most drug stores. These can be helpful for pain from your muscles or bones. PLEASE call your primary care physician as soon as possible to arrange / discuss plan for followup appointment. Appointment in the next 1-3 days is strongly encouraged if possible. PLEASE let us know here before you leave if there is anything further we can do to be of any assistance. Take care and feel Better! Is patient prescribed a controlled substance at d/c from ED?: No Referrals: None,Stated [Primary Care Provider] - 1-2 days Forms: Area PCPs
[2024-05-06] MEDS: KETOROLAC 15 MG/ML 1 ML VIAL IM STA (22:22)
[2024-05-06] MEDS: tiZANidine 4 MG TAB PO STA (22:23)
[2024-05-06 23:02] VITALS: BP 118/70; PULSE 53
== END 2024-05-06 23:03 | disposition home or self-care (01) ==
LOC: EC 20:23
DX: R07.89 Other chest pain (principal); R25.2 Cramp and spasm; Z90.89 Acquired absence of other organs
CPT/HCPCS: 36415; 93005; 80053; 83735; 84484; 85025; 85610; 85730; 71046; 99285; 96372; J1885